=== PATIENT | female | born 1985 | race Caucasian/White ===

== ENCOUNTER 2023-06-14 07:13 | Emergency (ER) | payer OTHER, SELFPAY ==
[2023-06-14] VITALS (13 sets, daily range): BP systolic 110–148; BP diastolic 74–103; PULSE 76–97; RESP 13–26; TEMP 36.6; O2SAT 95–97; BMI 46.0
--- NOTE | 2023-06-14 07:31 | ECG_ITS ---
The [facility] Test Date: 2023-06-14 Pat Name: RIGO LIN Department: Room: - Gender: Female Independent Driver: : 1985 Requested By: WON BENITEZ Order Number: [id number] Reading MD: DANIE ZAMBRANO Measurements Intervals [place] Rate: 89 P: 61 TN: 126 QRS: 79 QRSD: 86 T: 52 QT: 344 QTc: 391 Interpretive Statements 1100 Sinus rhythm 9110 normal ECG No previous ECG available for comparison Electronically Signed On 06-15-2023 11:01:19 EST by DANIE ZAMBRANO
--- NOTE | 2023-06-14 07:31 | XR_ITS ---
The [address] [address] Patient Name: RIGO LIN MRN: [id number] date: 1985 Sex: F Assigned Patient Location: ER Current Patient Location: ER Accession/Order Number: [id number] Exam Date: 06/14/2023 07:47 Report Date: 06/14/2023 08:01 At the request of: MARIA R COLIN Procedure: XR chest 1V EXAMINATION: XR chest 1V HISTORY: chest pain ; midsternal chest pain, tachycardia COMPARISON: No relevant comparison available. FINDINGS: LUNGS: No significant pulmonary parenchymal abnormalities. VASCULATURE: No increased pulmonary vasculature. PLEURA: No pneumothorax, effusion, or pleural thickening. CARDIAC: No cardiomegaly or cardiac silhouette abnormality. MEDIASTINUM: No visible mass or adenopathy. BONES: No fracture or visible bone lesion. OTHER: Negative. XR/XR chest 1V IMPRESSION: 1. No acute cardiopulmonary process. Electronically authenticated by: VASILIY NOEL Date: 06/14/2023 08:01
--- NOTE | 2023-06-14 07:36 | ED_ITS ---
HPI - Chest Pain General Chief Complaint: Chest Pain Stated Complaint: CHEST PAIN Time Seen by Provider: 06/14/23 07:23 Source: patient Mode of arrival: walk-in Limitations: no limitations History of Present Illness HPI narrative: Started about 3 weeks ago - mid sternal chest pain. Has been intermittent but over the last week has been more frequent. Also complains of some tingling down both arms. She said that her fitbit showed HR in the 130s. No prior history of palpitations or SVT. She recently saw her PCP and was told that she has pre-diabetes . She takes Wellbutrin but no other meds. No personal cardiac history. No family history of AMI age 40 or younger. No recent change in activity or injury to account for the pain. Related Data Allergies Allergy/AdvReac Type Severity Reaction Status Date / Time No Known Drug Allergies Allergy Verified 06/14/23 07:19 Exam Narrative Exam Narrative: Nurses notes and vital signs reviewed and patient is not hypoxic. afebrile General: Well-appearing and in no apparent distress. Skin: Warm, dry, no pallor noted. Head: Normocephalic, atraumatic. Neck: Supple, non-tender. Eye: Pupils are equal, round and EOMI. No scleral icterus. Ears, Nose, Mouth, and Throat: TM are clear, no posterior oropharynx erythema or nasal mucosal hypertrophy, uvula is mid-line Oral mucosa is moist Cardiovascular: Regular Rate and Rhythm without murmur, gallop or rub. Respiratory: No accessory muscle use or respiratory distress. Lungs are clear to auscultation, no wheezing, rales or rhonchi Chest Wall: no tenderness Musculoskeletal: normal ROM, no calf or popliteal tenderness, no lower extremity edema/swelling GI: Abdomen is soft, non-distended. Normal bowel sounds. No tenderness to palpation. No rebound, guarding, or rigidity noted. Neurological: A&O x4. No cranial nerve dysfunction observed. No truncal ataxia. Moves all extremities. Sensation intact. Psychiatric: Cooperative and interactive. Normal mood and affect. Constitutional Vital Signs, click to edit/add: Last Vital Signs Temp 98 F 06/14/23 07:19 Pulse 77 06/14/23 08:40 Resp 19 06/14/23 08:40 BP 130/74 06/14/23 08:03 Pulse Ox 96 06/14/23 08:40 O2 Del Method Room Air 06/14/23 07:19 Course Vital Signs Vital signs: Vital Signs Temperature 98 F 06/14/23 07:19 Pulse Rate 90 06/14/23 07:19 Respiratory Rate 18 06/14/23 07:19 Blood Pressure 148/103 H 06/14/23 07:19 Pulse Oximetry 96 06/14/23 07:19 Oxygen Delivery Method Room Air 06/14/23 07:19 Temperature 98 F 06/14/23 07:19 Pulse Rate 77 06/14/23 08:40 Respiratory Rate 19 06/14/23 08:40 Blood Pressure 130/74 06/14/23 08:03 Pulse Oximetry 96 06/14/23 08:40 Oxygen Delivery Method Room Air 06/14/23 07:19 MDM - Chest Pain MDM Narrative Medical decision making narrative: Patient was placed on health information administrator and EKG obtained. Blood drawn and sent for evaluation. CXR obtained. WBC 20 - patient takinf prednisone. Remainder of testing negative including ekg, troponin, CXR. Patient informed of results. We discussed what we ruled out. Discussed need to see Dr Ball for follow up and potential additional workup, possible cardiology referral if fast HR returns. Lab Data Attestation: I reviewed the patient's lab results. Labs: Lab Results 06/14/23 Range/Units 07:30 WBC 20.0 H (4.0-11.0) 10^3/uL RBC 4.65 (4.20-5.40) 10^6/uL Hgb 14.5 (12.0-16.0) g/dL Hct 44.0 (36.0-48.0) % MCV 94.6 (81.0-99.0) fL MCH 31.2 (26.7-34.0) pg MCHC 33.0 (29.9-35.2) g/dL RDW 13.9 (11.0-15.0) % Plt Count 227 (150-450) 10^3/uL MPV 11.1 (9.5-13.5) fL Seg Neuts % (Manual) 60.0 Lymphocytes % (Manual) 31.0 (20.5-60.0) % Monocytes % (Manual) 8.0 (1.7-12.0) % Eosinophils % (Manual) 1.0 (0.9-7.0) % Basophils % (Manual) 0.0 L (0.2-2.0) % Neutrophils # (Manual) 12.00 H (1.4-6.5) 10^3/uL Lymphocytes # (Manual) 6.20 H (1.20-3.80) 10^3/uL Monocytes # (Manual) 1.60 H (0.30-0.80) 10^3/uL Eosinophils # (Manual) 0.20 (0.00-0.70) 10^3/uL Basophils # (Manual) 0.00 (0.00-0.10) 10^3/uL Sodium 138 (136-145) mmol/L Potassium 4.3 (3.5-5.1) mmol/L Chloride 103 (98-107) mmol/L Carbon Dioxide 22.6 (21.0-32.0) mmol/L Anion Gap 16.7 BUN 16.0 (7.0-18.0) mg/dL Creatinine 0.84 (0.55-1.02) mg/dL Est GFR ( Amer) >60 (>=60) Est GFR (Non-Af Amer) >60 (>=60) BUN/Creatinine Ratio 19.0 Glucose 96 (74-106) mg/dL Calcium 8.4 L (8.5-10.1) mg/dL Troponin I High Sens <4.0 L (4.0-51.3) pg/mL NT-Pro-B Natriuret Pep 41.0 (<=450.0) pg/mL Imaging Data Chest x-ray: Radiologist's impression: ITS Impressions Chest X-Ray 06/14/23 07:31 IMPRESSION: 1. No acute cardiopulmonary process. Electronically authenticated by: VASILIY NOEL Date: 06/14/2023 08:01 ECG Data Attestation: I personally reviewed and interpreted this ECG as follows: Interpretation: EKG interpretation: Emergency Department physician interpretation. Normal sinus rhythm at 89bpm. Normal axis, normal intervals and no ST segment elevation or depression. Normal EKG Discharge Plan Discharge Stand Alone Forms: Portal Instructions Chief Complaint: Chest Pain Clinical Impression: Chest pain Patient Disposition: Home, Self-Care Time of Disposition Decision: 08:51 Instructions: Chest Pain (ED) Referrals: Yonis Ball MD [Primary Care Provider] - 1 week Discharge Date/Time: 06/14/23 09:03
[2023-06-14 07:44] LABS: Hemoglobin 14.5 g/dL (12.0-16.0); Mean Corpuscular Hemoglobin 31.2 pg (26.7-34.0); Mean Corpuscular Volume 94.6 fL (81.0-99.0); Mean Platelet Volume 11.1 fL (9.5-13.5); Platelet Count 227 10^3/uL (150-450); Red Blood Count 4.65 10^6/uL (4.20-5.40); Red Cell Distribution Width 13.9 % (11.0-15.0)
[2023-06-14 08:08] LABS: Anion Gap 16.7; Calcium 8.4 mg/dL (8.5-10.1); Carbon Dioxide 22.6 mmol/L (21.0-32.0); Chloride 103 mmol/L (98-107); Estimated GFR (African America >60 (>=60); Estimated GFR (Non-African Ame >60 (>=60); Glucose 96 mg/dL (74-106); Potassium 4.3 mmol/L (3.5-5.1); Sodium 138 mmol/L (136-145); Troponin I High Sensitivity <4.0 pg/mL (4.0-51.3)
== END 2023-06-14 09:03 | disposition home or self-care (01) ==
PROVIDERS: Emergency Provider Emergency Medicine; PCP Family Medicine
DX: R07.9 Chest pain, unspecified (principal); Z79.899 Other long term (current) drug therapy
CPT/HCPCS: 36415; 71045; 80048; 83880; 84484; 85007; 85027; 93005; 99285

== ENCOUNTER 2024-12-09 07:11 | Outpatient (OUT) | payer OTHER, SELFPAY ==
--- OUTSIDE RECORDS SUMMARY | 2008-11-08 08:45 | XMS_ITS | Continuity of Care Document ---
Author Organization [facility] Address [address] [place] [address] Phone Care Team Providers Care Career And Technology Education Teacher Name Role Phone Osmin Green Unavailable Unavailable Procedures Procedure Date OFFICE/OUTPATIENT VISIT, [facility] OFFICE/OUTPATIENT VISIT, [facility] SPECIMEN HANDLING ODH ROCEPHINE 250 MG (PER DOSE) 009 ZITHROMAX 1 GM (10PK/BX)EACH RPR, RFX On RPR CHLANYDIA (O/R) TRACHOMATIS CULTURE GONORRHEAL (O/R) HIV-1 URINE TEST Advance Directives Directive Yes / No Effective Date File Name No Information Encounters Encounter Description Practice Location Reason(s) For Visit Diagnoses Date Provider Providers Copied on Encounter OFFICE/OUTPATI ENT VISIT, [facility], [address], [place], [id number], [place] tel:[phone] [facility] No Information Norma Solorio. [address], [place], [id number], [place]. tel:[phone] OFFICE/OUTPATI ENT VISIT, [facility], [address], [place], [id number], [place] tel:[phone] [facility] No Information Norma Solorio. [address], [place], [id number], [place]. tel:[phone] Family History Family Member Type Diagnosis Age At Onset No Information Payers Payer name Insurance type Covered republican ID Authoriza tihua(s) No Information Social History Type Description Quantity Date Captured Comments Sex Female Smoking Status No Information Chief Complaint And Reason For Visit No Information Reason For Referral Reason For Referral No Information History Of Present Illness Encounter Date Complaint History Of Prese nt Illness No Information Functional Status Date Functional Assessmen t No Information Instructions Date Instruction Additional Infor mation No Information Assessments Type Assessment Date No Information Patient Care Teams Name Effective Dates (start - stop) Status Members No Information
--- OUTSIDE RECORDS SUMMARY | 2024-07-15 09:30 | XMS_ITS | Continuity of Care Document ---
Author Organization [facility] Address [address] [place] [address] [place] [address] Phone Care Team Providers Care Footwear Stitcher Name Role Phone Monae Brito CNP Unavailable Unavailable Procedures Procedure Date OFFICE/OUTPATIENT VISIT, [facility] POSTOP FOLLOW-UP VISIT POSTOP FOLLOW-UP VISIT POSTOP FOLLOW-UP VISIT LAP SLEEVE GASTRECTOMY Sleeve Gastrectomy OFFICE/OUTPATIENT VISIT, EST PSYCL/NRPSYC TST PHY/QHP [facility] PSYCL/NRPSYC TST PHY/QHP PSYTX PT&/FAMILY 60 MINUTES OFFICE/OUTPATIENT VISIT, [facility] Advance Directives Directive Yes / No Effective Date File Name No Information Encounters Encounter Description Practice Location Reason(s) For Visit Diagnoses Date Provider Providers Copied on Encounter OFFICE/OUTPATI ENT VISIT, EST [facility], [address] [place] [address], [id number], [place] tel:[phone] [facility] No Information Daryl Licona. [address] [place] [address], [id number], [place]. tel:[phone] Referring Provider: Monae Brito, [address] [place] [address], [place], [address]. tel:[phone] [facility], [address] [place] [address], [id number], [place] tel:[phone] [facility] No Information Daryl Licona. [address], [place], [place], [id number], [place]. tel:[phone] Referring Provider: Monae Brito, [address], [place], [address]. tel:[phone], [address] [place] [address] [address], [place], [place], [id number], [place] tel:[phone] [facility] No Information Daryl Licona. [address], [place], [place], [id number], [place]. tel:[phone] Referring Provider: Monae Brito, [address], [place], [address]. tel:[phone], [address] [place] [address] [address], [place], [place], [id number], [place] tel:[phone] [facility] No Information Daryl Licona. [address], [place], [place], [id number], [place]. tel:[phone] Referring Provider: Monae Brito, [address], [place], [address]. tel:[phone], [address] [place] [address] [address], [place], [place], [id number], [place] tel:[phone] [facility] IP No Information Carolina Arreola. [address], [place], [place], [id number], [place]. tel:[phone] Referring Provider: Maxwell Mcknight, [address] [place] [address] [address], [facility] [place], [address]. tel:[phone], [address] [place] [address] [address], [place], [place], [id number], [place] tel:[phone] [facility] No Information Daryl Monae. [address], [place], [place], [id number], [place]. tel:[phone] Referring Provider: Monaearsenio Brito, [address] [place] [address] [address], [place], [address]. tel:[phone] OFFICE/OUTPATI ENT VISIT, [facility], [address] [place] [address] [address], [place], [place], [id number], [place] tel:[phone] [facility] No Information Carolina Arreola. [address] [place] [address] [address], [place], [place], [id number], [place]. tel:[phone] Referring Provider: Maxwell Mcknight, [address] [place] [address] [address], [place], [address]. tel:[phone] PSYTX PT&/FAMILY [facility], [address] [place] [address] [address], [place], [place], [id number], [place] tel:[phone] [facility] No Information Wong Lawrence. [address] [place] [address] [address], [place], [place], [id number], [place]. tel:[phone] Referring Provider: Melinda Back, [address] [place] [address] [address], [place], [address]. tel:[phone] OFFICE/OUTPATI ENT VISIT, [facility], [address] [place] [address] [address], [place], [place], [id number], [place] tel:[phone] [facility] No Information Carolina Arreola. [address] [place] [address] [address], [place], [place], [id number], [place]. tel:[phone] Referring Provider: Maxwell Mcknight, [address] [place] [address] [address], [place], [address]. tel:[phone] Family History Family Member Type Diagnosis Age At Onset No Information Payers Payer name Insurance type Covered libertarian ID Authoriza tion(s) [employer] [place] Medicaid CI [id number] Social History Type Description Quantity Date Captured Comments Sex Female Smoking Status No Information Chief Complaint And Reason For Visit No Information Reason For Referral Reason For Referral No Information Plan Of Treatment Date Type Action Status Appointment Lillie Hayes BOOKED History Of Present Illness Encounter Date Complaint History Of Prese nt Illness No Information Functional Status Date Functional Assessmen t No Information Instructions Date Instruction Additional Infor mation No Information Assessments Type Assessment Date No Information Patient Care Teams Name Effective Dates (start - stop) Status Members No Information
--- OUTSIDE RECORDS SUMMARY | 2024-11-17 06:35 | XMS_ITS ---
Author Organization [facility] Address [address] [place] [address] Care Team Providers Care Well Service Floorperson Name Role Phone Dr. Jens Stephenson Primary Care Provider [phone] REASON FOR VISIT EXT Encounters Encounter Location Date Provider Diagnosis [facility] [address] [address] 2024 Jens Stephenson Plan Of Treatment Next Appt Details Provider Name:Jens Stephenson, 0 12/09/2024 11:15:00 AM, [address] [place], [address], Provider Name:Jens Stephenson, 0 12/28/2024 10:10:00 AM, [address] [place], [address], Provider Name:Philly Mercer , 03/02/2025 10:15:00 AM, [address], [place], [address], Progress Notes * RIGO LIN RDOB:[birth year] (39 yo F)Acc No.[id number]:11/17/2024 Patient: Analia ADATASH RIGO Lyon Provider: Shahrzad Stephenson DDS :1985 A ge:39 Y S ex:Female Date:11/17/2024 [address] [place], [place] Subjective: * Chief Complaints: * 1 . EXT. * Medical History: Objective: * Vitals: Assessment: Plan: * Treatment: * Images: * Electronic signature of Dr. Jens Stephenson , DMD on 12/09/2024 at 07:14 AM EDT Sign off status: Pending * Provider: Shahrzad Stephenson DDS Date: 0 11/17/2024 Generated for Cong kamara/Kit/eTana on: 0 12/09/2024 07:14 AM EDT
--- OUTSIDE RECORDS SUMMARY | 2024-12-03 05:30 | XMS_ITS ---
Author Organization [facility] [place] Address [address] [place] [address] Care Team Providers Care Cis Coordinator Name Role Phone Itz Oneill Primary Care Provider Allergies No Known Allergies REASON FOR VISIT [employer]- ESTABLISH- transfer from Dr Ball, been out of meds for awhile- concentration is off, bariatric surgery- gastric sleeve- down 134 lbs Medications Medication SIG (Take, Route, Fr equency, Duration) Notes Start Date End Date Status ALPRAZolam 0.25 MG 1 tablet Orally bid for 7 days 12/03/2024 Active LaMICtal 25 MG 1 tablet Orally for 30 day(s) 12/03 Active Wellbutrin XL 150 MG 1 tablet in the mor rosy Orally Once a day for 30 day(s) 12/03/2024 Active Social History Tobacco Use: Social History Observation Description Date Details (start date - stop date) Former Smoker 11/06/1996 - 10/07/2023 Tobacco Control (Standard) Question Answer Notes Tobacco use: Former smoker When did you start smoking? 11/06/1996 When did you stop smoking? 10/07/2023 How long has it been since you last smoked? 1-5 years AUDIT-C (Standard) Question Answer Notes Did you have a drink containing alcohol in the p ast year? No Points 0 Interpretation Negative Problems Problem Type SNOMED Code ICD Code Onset Dates Problem Status W/U Status Risk Notes Problem Depression (359558931) Depression (F32.9) Active confirmed Problem Anxiety (30345738) Anxiety (F41.9) Active confirmed Vital Signs Blood pressure systolic 118 mm Hg 12/04/19 25 Blood pressure diastolic 74 mm Hg 025 Height 71 in 12/03/2024 Weight 193.8 lbs 12/03/2024 BMI 27.03 kg/m2 12/03/2024 Encounters Encounter Location Date Provider Diagnosis [facility] [address] [place] [address] 12/03/2024 Itz Oneill Well adult Z00.00 an d Anxiety F41.9 Assessments Encounter Date Diagnosis (ICD Code) Assessment Notes Treatment Notes Treatment Clinical Notes Section Notes 12/03/2024 Well adult (ICD-10 - Z00.00) 12/03/2024 Anxiety (ICD-10 - F41.9) Plan Of Treatment Medication Medication Name Sig Start Date Stop Date Notes ALPRAZolam 0.25 MG 1 tablet Orally bid for 7 days 12/04/19 25 LaMICtal 25 MG 1 tablet Orally for 30 day(s) 12/03/2024 Wellbutrin XL 150 MG 1 tablet in the mor rosy Orally Once a day for 30 day(s) 12/03/2024 Pending Test Test Name Order Date HEMOGLOBIN A1C (GLYCO) 12/03/2024 IRON, TOTAL 12/03/2024 LIPID PANEL (CHOL/TRIG/HDL/LDL) 12/04/19 25 VITAMIN D, 25 LEVEL (TOTAL) 12/03/2024 FSH+LH+Prog+E2 12/03/2024 VIT B12 AND FOLATE 12/03/2024 THYROID PANEL (T4/TSH/FREE T3) CMP (COMP MET BARBOUR) w/eGFR CKD-EPI 2024 CBC WITH DIFF 12/03/2024 Progress Notes * King DONALDOB: [birth year] (39 yo F)Acc No.[id number]:12/03/2024 UNLOCKED PROGRESS NOTE New Patient Patient: Lillie CARPENTER Provider: Naa Oneill (TTC)MD :1985 A ge:39 Y S ex:Female Date:12/03/2024 Address:[address] [place], [place] [id number] Check In:09:22 AM ESTCheck O ut:10:01 AM EST Subjective: * Chief Complaints: * 1 . [employer]- ESTABLISH- transfer from Dr Ball. 2. Been out of meds for awhile- concentration is off. 3. January had bariatric surgery- gastric sleeve- down 134 lbs. * HPI: G eneral: Hd gastric sleeve - -0 still losing out of meds - was on wellbutrin lamictal and prn xanax. D epression Screening: PHQ-2 (2015 Edition) L ittle interest or pleasure in doing things??Several days F eeling down, depressed, or hopeless? S everal days T otal Score 2 D epression Screening: PHQ-9 L ittle interest or pleasure in doing things?Several days F eeling down, depressed, or hopeless S everal days T rouble falling or staying asleep, or sleeping too much N early every day F eeling tired or having little energy N early every day P oor appetite or overeating N early every day F eeling bad about yourself or that you are a failure, or have let yourself or your family down S everal days T rouble concentrating on things, such as reading the newspaper or watching television N early every day M oving or speaking so slowly that other people could have noticed; or the opposite, being so fidgety or restless that you have been moving around a lot more than usual N early every day T houghts that you would be better off or of hurting yourself in some way N ot at all T otal Score 1 8 I nterpretation M oderately Severe Depression * ROS: E ENT: hearing changes d enies. v isual changes d enies.?non-healing mouth sores d enies. s wollen glands or neck lumps d enies. h oarseness d enies. s ore throat d enies. d ifficulty swallowing d enies. n ose bleeds d enies. n johan congestion d enies. e ar ache d enies. e ar discharge?denies. r inging in ears d enies. l ight sensitivity d enies. e ye pain d enies. b lurring d enies. e ye irritation d enies. d ouble vision d enies.?vision loss d enies. G eneral/Constitutional: Sweats: D enies. F atigue d enies. S leep problems d enies. A norexia d enies. M alaise d enies. W eight loss d enies.?Fatigue or Weakness d enies. F ever or Chills d enies. C ardiovascular: Shortness of Breath w/lying flat d enies. L ightheadedness/dizziness d enies. C hest tightness/ heavy pressure d enies. S welling of legs, ankles, or feet d enies. W aking up with shortness of breath d enies. C hest pain denies. P alpitations d enies. W eight gain d enies. R espiratory: Chronic or frequent cough d enies. C oughing up blood?denies. D ifficulty breathing d enies. P roductive cough d enies. S noring?denies. S hortness of breath that awakens from sleep (PND) d enies. C hest pain d enies. S putum production d enies. W heezing d enies. M usculoskeletal: Joint pain d enies. J oint Fluid d enies. B ack pain d enies. K nee pain d enies. N chelsea pain d enies. J oint Stiffness d enies. M uscle cramps d enies. W eakness of muscles d enies. A rthritis d enies. M uscle aches d enies. P ain in shoulder(s) d enies. S wollen joints d enies. * Medical History: A nxiety, Depression. * Surgical History: B ariatric Surgery- Dr Figueroa 01/2024. * Hospitalization/Major Diagno stic Procedure: B ariatric surgery 01/2024. * Family History: F ather: alive, diagnosed with Unspecified essential hypertension. M other: alive. M aternal Grandmother: alive. * Social History: T obacco Use: T obacco Control (Standard) T obacco use: F ormer smoker W hen did you start smoking? 0 11/06/1996 W hen did you stop smoking? 0 10/07/2023 H ow long has it been since you last smoked??1-5 years D rug/Alcohol: A MANUEL-C (Standard) D id you have a drink containing alcohol in the past year? N o P oints 0 I nterpretation N egative * Medications: N one * Allergies: N .K.D.A. Objective: * Vitals: W t:193.8lbs, Ht: 71 in, BP:118/74mm Hg, BMI:27.03Index, Ht-cm: 180.34 cm, Wt-k.91 kg. * Examination: P hysical Exam: GENERAL: w ell developed, well nourished, in no acute distress. HEAD: n ormocephalic/atraumatic. EYES: p upils equal, round and reactive to light, conjunctivae and sclerae normal. EARS: n o deformity or lesion of external ear, canals and TM appear normal bilaterally, TM's intact, not inflamed with normal light reflex, hearing grossly normal to conversational speech. NOSE: n o deformity, discharge, inflammation, or lesions.? MOUTH: m ucous membranes moist, normal oropharynx and posterior pharynx without lesions or exudates, tongue normal, dentition normal. NECK: n chelsea supple, no masses or palpable cervical nodes, trachea midline, thyroid without nodules, masses, tenderness, or enlargement. CHEST: n o chest wall deformity, no chest wall tenderness.? LUNGS: n ormal respiratory effort and clear to auscultation, no wheezes, rales, or rhonchi, good air exchange. CARDIO: r egular rate and rhythm, normal S1 and S2, nor murmur, rub, or gallop. PULSES: n ormal capillary refill. ABDOMEN: s oft, non-distended, non-tender, no masses. MUSCULOSKELETAL: n o deformity or scoliosis noted, normal range of motion, joints normal, no erythema, edema, effusion, or ecchymosis. EXTREMITY: n o clubbing, cyanosis, edema, or deformity with normal ROM in both upper and lower bilateral extremities. NEUROLOGIC: g rossly normal. SKIN: n o rashes, ulcerations, or suspicious lesions. LYMPH NODES: n o cervical adenopathy, nodes normal. MENTAL STATUS: a lert and oriented x3, normal mood and affect. Assessment: * Assessment: 1. W ell adult - Z00.00 (Primary) 2 . A nxiety - F41.9 Plan: * Treatment: 2. A nxiety Start Wellbutrin XL Tablet Extended Release 24 Hour, 150 MG, 1 tablet in the morning, Orally, Once a day, 30 day(s), 30; S tart LaMICtal Tablet, 25 MG, 1 tablet, Orally, 30 day(s), 15; S tart ALPRAZolam Tablet, 0.25 MG, 1 tablet, Orally, bid, 7 days, 14 Tablet, Refills 0. * Procedure Codes: 3 078F DIAST BP < 80 MM HG, 3074F SYST BP LT 130 MM HG * * Electronic signature of Itz Oneill MD, [id number] on 12/09/2024 at 07:14 AM EDT Sign off status: Pending Visit Status: Ana COTA (Check Out) * Provider: Naa Oneill ([facility])MD Date: 0 12/03/2024 Generated for Cong kamara/Kit/eTransmitting on: 0 12/09/2024 07:14 AM EDT History and Physical Notes * HPI (History of Present Illness) Category Sub-Category Detail Notes Category Not es Depression Screening PHQ-9 Little inte rest or pleasure in doing things: Several days Feeling down, depressed, or hopeless: Se veral days Trouble falling or staying asleep, or sl eeping too much: Nearly every day Feeling tired or having little energy: N early every day Poor appetite or overeating: Nearly ever y day Feeling bad about yourself o r that you are a failure, or have let yourself or your family down: Several days Trouble concentrating on thi ngs, such as reading the newspaper or watching television: Nearly every day Moving or speaking so slowly that other people could have noticed; or the opposite, being so fidgety or restless that you have been moving around a lot more than usual: Nearly every day Thoughts that you would be b alan off or of hurting yourself in some way: Not at all Total Score: 18 Interpretation: Moderately Severe Depres jesus General Hd gastric sleeve - -0 still losing out of meds - was on wellbutrin lamictal and prn xanax Depression Screening PHQ-2 (2015 Edition) Little interest or pleasure in doing things?: Several days Feeling down, depressed, or hopeless?: S everal days Total Score: 2 Examination Category Sub-Category Detail Notes Category Not es Physical Exam GENERAL: well developed, well nourished, in no acute distress HEAD: normocephalic/atraum atic EYES: pupils equal, round and reactive to light, conjunctivae and sclerae normal EARS: no deformity or lesi on of external ear, canals and TM appear normal bilaterally, TM's intact, not inflamed with normal light reflex, hearing grossly normal to conversational speech NOSE: no deformity, discha rge, inflammation, or lesions MOUTH: mucous membranes melody st, normal oropharynx and posterior pharynx without lesions or exudates, tongue normal, dentition normal NECK: neck supple, no mass es or palpable cervical nodes, trachea midline, thyroid without nodules, masses, tenderness, or enlargement CHEST: no chest wall deform ity, no chest wall tenderness LUNGS: normal respiratory e ffort and clear to auscultation, no wheezes, rales, or rhonchi, good air exchange CARDIO: regular rate and rhy thm, normal S1 and S2, nor murmur, rub, or gallop PULSES: normal capillary ref ill ABDOMEN: soft, non-distended, non-tender, no masses RECTAL: MUSCULOSKELETAL: no deformity or scol iosis noted, normal range of motion, joints normal, no erythema, edema, effusion, or ecchymosis EXTREMITY: no clubbing, cyanosi s, edema, or deformity with normal ROM in both upper and lower bilateral extremities NEUROLOGIC: grossly normal SKIN: no rashes, ulceratio ns, or suspicious lesions LYMPH NODES: no cervical adenopat hy, nodes normal MENTAL STATUS: alert and oriented x 3, normal mood and affect
--- OUTSIDE RECORDS SUMMARY | 2024-12-09 07:14 | XMS_ITS | Encounter Summary ---
Author Organization [facility] Address [address] [facility] [place] [address] Care Team Providers Care Imaging Aide Name Role Phone Yonis Ball MD Primary Care Provider [phone] Yonis Ball MD Unavailable Yonis Ball MD Unavailable Encounter Details Date Type Department Care Team (Late st Contact Info) Description 06/19/2023 Orders Only [facility] [address] [facility] [place] [address] Allen Crowell MD [address] [facility] Social History Tobacco Use Types Packs/Day Years Used Date Smoking Tobacco: Every Day Cigarettes 1 20.7 Started: 2004 Passive Smoke Exposure: Past Alcohol Use Standard Drinks/Week Comments Defer 0 (1 standard drink = 0.6 oz pur e alcohol) Comments Unknown Sex and Gender Information Value Date Recorded Sex Assigned at Not on file Legal Sex Female 7:20 PM EDT Gender Identity Not on file Sexual Orientation Not on file documented as of this encounter Plan of Treatment Not on file documented as of this encounter Procedures Procedure Name Priority Date/Time Associated Diagnosis Comments ECG 12-LEAD Routine 06/19/2023 9:06 AM EDT XR CHEST 1 VIEW Routine 06/19/2023 8:58 AM EDT documented in this encounter Results * ECG 12 lead (06/19/2023 9:06 AM EDT) us Yonis Ball MD ECG ORDERABLES Final Result * XR chest 1 view (06/19/2023 8:58 AM EDT) Anatomical Region Laterality Modality Chest Radiographic Geovanna ging us Allen Crowell MD IMG XR PROCEDURES Final Result documented in this encounter Visit Diagnoses Not on filedocumented in this encounter Care Teams Imaging Aide Relationship Specialty Start Date End Date Yonis Ball MD PCP - General Family Medicine 05/28/23 Yonis Ball MD [address] [place] [id number] PCP - [facility] 01/07/24 04/07/24 Yonis Ball MD [address] [place] [phone] PCP - [facility] [employer] 04/08/24 documented as of this encounter
--- OUTSIDE RECORDS SUMMARY | 2024-12-09 07:15 | XMS_ITS | Clinical Summary ---
Author Organization [facility] Address [address] [place] [address] Care Team Providers Care Nut Process Helper Name Role Phone Yonis Ball MD Primary Care Provider [phone] Yonis Ball MD Unavailable Allergies No known active allergies Medications Levonorgestrel (Mirena, 52 MG,) 20 MCG/DAY intrauterine device 1 Device by Intrauterine route continuously Active buPROPion XL (Wellbutrin XL) 300 MG 24 hr tabletIndication s:Major depressive disorder, recurrent episode, mild Take 1 tablet (300 mg) by mouth Daily Do not crush, chew, or split. 30 tablet 5 4 Active lamoTRIgine (LaMICtal) 25 MG tabletIndication s:Moderate recurrent major depression (HCC) 1 PO QHS x 2 weeks then 2 PO QHS 60 tablet 3 4 Active cholecalciferol (Vitamin D-3) 50 MCG (2000 UT) tabletIndication s:Vitamin D deficiency Take 2,000 Units by mouth Daily 90 tablet 3 4 Active phentermine (Adipex-P) 37.5 MG tabletIndication s:Morbid obesity due to excess calories ([facility]) Take 1 tablet (37.5 mg) by mouth in the morning. Take before meals. 30 tablet 4 Active nicotine polacrilex (Nicotine Mini) 4 MG lozengeIndicatio ns:Tobacco use disorder, continuous Dissolve 1 lozenge (4 mg) in the mouth every 2 (two) hours if needed for smoking cessation 100 lozenge 2 4 Active Active Problems Problem Noted Date Diagnosed Date Tobacco use disorder, continuous 11/01/2023 Assessment & Plan (11/01/2023 11:45 AM EDT): Wants to quit smoking and start nicotine replacement. Prediabetes 06/12/2023 Calculus of bile duct withou t cholecystitis and without obstruction 06/11/2023 Generalized anxiety disorder 06/11/2023 Assessment & Plan (11/01/2023 11:44 AM EDT): Mood much improved and continue medication. Assessment & Plan (09/13/2023 12:51 PM EDT): Continued symptoms and add lamictal. Continue wellbutrin at current dose. Warned will take 2-3 weeks to notice improvement in mood. Assessment & Plan (06/11/2023 10:42 AM EST): Severe symptoms and resume wellbutrin. Warned will take 2-3 weeks to notice improvement in mood. Non-seasonal allergic rhinitis 06/11/2023 Major depressive disorder, recurrent, mild 06/10 Assessment & Plan (11/01/2023 11:44 AM EDT): Mood much improved and continue medication. Assessment & Plan (09/13/2023 12:51 PM EDT): Continued symptoms and add lamictal. Continue wellbutrin at current dose. Warned will take 2-3 weeks to notice improvement in mood. Assessment & Plan (06/11/2023 10:42 AM EST): Severe symptoms and resume wellbutrin. Warned will take 2-3 weeks to notice improvement in mood. Overactive bladder 06/11/2023 Vitamin D deficiency 06/11/2023 Morbid obesity due to excess calories 06/11/2023 Assessment & Plan (11/01/2023 11:45 AM EDT): Patient doing well with adipex but gained weight this month. Tolerating well with only mild dry mouth. Continue with dietary changes and less calories. Need to limit snacking and smaller portions. Continue healthier choices. Need regular aerobic exercise 30 minutes at a time 5-6 days a week. Refill for another month. OARRS reviewed. Continue meds as prescribed. If develop new or worsening symptoms contact office. Assessment & Plan (09/13/2023 12:51 PM EDT): Patient doing well with adipex and lost 10 pounds in first month. Tolerating well with only mild dry mouth. Continue with dietary changes and less calories. Need to limit snacking and smaller portions. Continue healthier choices. Need regular aerobic exercise 30 minutes at a time 5-6 days a week. Refill for second month. OARRS reviewed. Continue meds as prescribed. If develop new or worsening symptoms contact office. Assessment & Plan (06/11/2023 10:42 AM EST): Patient overweight and difficult time losing weight. Discussed proper diet and regular aerobic exercise. Recommend Weight Watchers and need to limit calories and smaller portions. Need to increase activity and regular aerobic exercise several days a week for 30 minutes at a time. Interested in adipex and warned of potential cardiac side effects. Script written for first month and will need to recheck weight in 1 month. OARRS reviewed. Continue medications as prescribed. Refer to [facility] to discuss surgical options. Annual physical exam 06/11/2023 Family History Medical History Relation Name Comments Atrial fibrillation Father Thyroid disease Mother Relation Name Status Comments Father Alive Mother Alive Social History Tobacco Use Types Packs/Day Years Used Date Smoking Tobacco: Every Day Cigarettes 1 20.7 Started: 2004 Passive Smoke Exposure: Past Tobacco Cessation:Ready to Q uit: Not Asked; Counseling Given: Yes Alcohol Use Standard Drinks/Week Comments Defer 0 (1 standard drink = 0.6 oz pur e alcohol) Comments Unknown Sex and Gender Information Value Date Recorded Sex Assigned at Not on file Legal Sex Female 7:20 PM EDT Gender Identity Not on file Sexual Orientation Not on file Last Filed Vital Signs Vital Sign Reading Time Taken Comments Blood Pressure 142/80 11/01/2023 11:19 AM EDT Pulse 116 11/01/2023 11:19 AM EDT Temperature 36.2 C (97.1 F) 11/01/2023 11:19 AM EDT Respiratory Rate 22 11/01/2023 11:19 AM EDT Oxygen Saturation 92% 11/01/2023 11:19 AM EDT Inhaled Oxygen Concentration - - Weight 153 kg (337 lb) 11/01/2023 11:19 AM EDT Height 180.3 cm (5' 11 ) 11/01/2023 11:19 AM EDT Body Mass Index 47 11/01/2023 11:19 AM EDT Plan of Treatment Health Maintenance Due Date Last Done Comments Pap Smear 07/07/2007 Cervical Cancer Screening 2016 HPV/Cotest 2016 Influenza Vaccine (#1) 2024 Insurance [facility] MEDICAID MEDICAID [place] Care Teams Nut Process Helper Relationship Specialty Start Date End Date Yonis Ball MD PCP - General Family Medicine 05/28/23 Yonis Ball MD [address] [place] [address] PCP - [facility] 04/08/24
--- OUTSIDE RECORDS SUMMARY | 2024-12-09 07:15 | XMS_ITS | CCD ---
Author Organization [facility] Care Team Providers Care Complementary Health Therapists Name Role Phone MELANIE MONTELONGO Admitting Unavailable MELANIE MONTELONGO Attending Unavailable CORETTA CLEVELAND Referring Unavailable CORETTA CLEVELAND Primary Care Unavailable MELANIE MONTELNOGO Surgeon Unavailable MA Procedure Practitioner Unavailab india MA Procedure Practitioner Unavailab SINTIA Hurtado Surgeon Unavailable Lynn Mathew Unavailable DR MARIA R SWANN Attending Unavailable JESSICA, DR BERRY Neri Consulting Unavailable DR WON BENITEZ Primary Care Unavailable DR MARIA R SWANN Admitting Unavailable DR MARIA R SWANN Consulting Unavailable ANIL CLEVELAND Attending ANIL Kessler Referring Unavailable WON BENITEZ Attending Unavailable ANIL CLEVELAND Attending Unavailable ANIL CLEVELAND Attending Unavailable WON BENITEZ Attending Unavailable Allergies Allergy Classification Reported Allergen(s) Allergy Type Date of Onset Reaction(s) Facility (1 source) 30440,00; Translations: [Unknown] Propensity to adverse reactions (disorder) 9 [facility] Repository Medications Current Medications Medication Drug Class(es) Dates Sig (Normalized) Sig (Original) [id number] 200 actuat albuterol 0.09 mg/actuat metered dose inhaler (1 source) beta2-Adrenergic Agonist Start: 04-04-2021 take 2 puff(s) by inhalation every four to six hours as needed Albuterol Sulfate HFA 108 (90 Base) MCG/ACT 2 puffs as needed Inhalation every 4-6 hours for 14 days Mar, Active buPROPion (1 source) Aminoketone Wellbutrin Active diazePAM (1 source) Benzodiazepine Valium Active lamoTRIgine (1 source) Mood Stabilizer, Anti-epileptic Agent LaMICtal Active montelukast (1 source) Leukotriene Receptor Antagonist Singulair Active Vitamin D (1 source) Vitamin D Active Problems Active Problems Problem Classification Problem Date Documented Da te Episodic/Chronic Anxiety disorders (1 source) Anxiety disorder, unspecified; Translations: [ANXIETY DISORDER UNSPECIFIED] Onset: 07-31-2021 Chronic Mood disorders (1 source) Major depressive disorder, single episode, unspecified; Translations: [GRAEME DEPRESS D/O SINGLE EPIS UNS] Onset: 07-31-2021 Chronic Substance-related disorders (1 source) Nicotine dependence, cigarettes, uncomplicated; Translations: [NICOTINE DEPEND CIGARETTES UNCOMP] Onset: 07-31-2021 Chronic Past or Other Problems Problem Classification Problem Date Documented Da te Episodic/Chronic E Codes: Natural/environment (1 source) Other and unspecified overexertion or strenuous movements or postures, initial encounter; Translations: [OTH AND UNS OVREXRT/STRN MVMT/POS INT] Onset: 07-31-2021 Episodic E Codes: Unspecified (1 source) Activity, dancing; Translations: [ACTIVITY DANCING] Onset: 07-31-2021 Episodic Immunizations and screening for infectious disease (1 source) Contact with and (suspected) exposure to other viral communicable diseases Onset: 04-04-2021 Resolved: 04-04-2021 Episodic Other aftercare (1 source) Other residential (current) drug therapy; Translations: [OTH BLOOD BANK WORKER CURRENT DRUG THERAPY] Onset: 07-31-2021 Episodic Other non-traumatic joint disorders (3 sources) Effusion, right ankle; Translations: [EFFUSION RIGHT ANKLE] Onset: 07-30-2021 Episodic Sprains and strains (1 source) Sprain of unspecified ligament of right ankle, initial encounter; Translations: [SPRAIN UNS LIGAMENT RT ANKLE INIT] Onset: 07-31-2021 Episodic Results Test Name Value Interpretation Reference Range Facil ity COVID Quick Testingon 2020 Result Negative [facility] [employer] [facility] Other Quick Fluon 04-04-2021 FLUAV Ab CF (S) [Titer] Negative [employer] Other FLUBV Ab CF (S) [Titer] Negative [employer] Other Operative Reporton 9 Operative Report MR#: [id number] [facility] Pt. Name: Lillie Donald #: [id number] Discharge Date: Birthdate: 1985 OPERATIVE REPORT DATE OF SURGERY: 11/25/2018 SURGEON: Melanie Montelongo M.D. PREOPERATIVE DIAGNOSIS: Right hand inter distal granuloma. PROCEDURE PERFORMED: Right hand 3rd interdigital granuloma excision. POSTOPERATIVE DIAGNOSIS: Right hand 3rd interdigital granuloma. RESIDENT: Cari Yousif M.D., PGY 4. ANESTHESIA: Axillary block with sedation. INDICATIONS FOR THE PROCEDURE: The patient is a 33-year-old female who works as a hair clipper power, who presented to us with progressively worsening pain and a mass along the dorsal aspect of the right hand 3rd webspace. She was diagnosed with right hand 3rd interdigital foreign body granuloma from hair clipping. She tried conservative management in the form of activity modification with no relief. As she continued to have severe pain with significant functional interference, the available treatment options were discussed with her including the option of right hand the 3rd interdigital foreign body granuloma excision. The risks, benefits, and alternatives were discussed with her and she elected to proceed. History and physical was done. Informed consent was obtained. The procedure was discussed with her in detail in the preoperative holding area, the right hand was marked. Preoperative antibiotics were begun and she was taken to the operating room. DESCRIPTION OF THE PROCEDURE: The patient was placed supine on the operative table. She was given an axillary block by Anesthesia in the holding. She was given sedation. A tourniquet was applied on the right proximal arm. EPC cuffs were applied on the bilateral lower legs and the right hand and the right upper extremity were prepped and draped in a sterile standard fashion. A complete surgical time-out was performed. The right upper extremity was exsanguinated and the tourniquet was inflated to 220 mmHg pressure. A longitudinal skin incision was made over the dorsal aspect of the right hand 3rd webspace and the incision were deepened down through the subcutaneous tissues. There foreign body granuloma noted with retained hair clippings throughout the dermis and the subcutaneous tissue which were completely excised. Once the granuloma was completely excised and the hair clippings were completely removed, the wound was thoroughly irrigated. The skin incision was approximated using 4-0 nylon interrupted horizontal mattress sutures. Extremity was clear and sterile dressings were applied followed by application of a compressive Cade wrap. The tourniquet was released and the tourniquet time was 20 minutes. The patient was awakened from anesthesia and was transferred to recovery in stable condition. Sponge, needle, and instrument counts were found to be accurate. ESTIMATED BLOOD LOSS: 5 mL. COMPLICATIONS: None. DISPOSITION OF THE PATIENT: She will be weightbearing as tolerated on her right upper extremity. She will be discharged home and will be seen in followup in the office in 2 weeks. Electronically Signed by: Melanie Montelongo M.D. 12/11/2018 03:28 P Melanie Montelongo M.D. Date Dict: 11/25/2018/07:36 P/Melanie Montelongo M.D. Date Trans: 11/26/2018 05:26 A/melodie [id number] cc: Coretta Cleveland M.D. [facility] [address] [place] [address] Normal [facility] POC GLUCOSE LABon 11-25-2018 Glucose [Mass/Vol] 110 mg/dL High 70-100 [facility] Comment on above: Performed By: #### [id number] #### [facility] [address] [place] [address], [facility] POC URINE PREGNANCYon 2018 Beta HCG ( test) Ql (U) Negative Normal NEGATIVE [facility] Comment on above: Result Comment: Perf ormed in PACU Performed By: #### [id number] #### [facility] [address] [place] [address], [facility] Vital Signs Date Time Vital Sign Value Performing Clinician Facility 04-04-2021 17:00-0500 Body height 180.34 cm Lynn Mathew Other [facility] Other 04-04-2021 17:00-0500 Body mass index (BMI) [Ratio] 34.86 kg/m2 Lynn Mathew Other [facility] Other 04-04-2021 17:00-0500 Body temperature 100.1 [degF] Lynn Ginty Other [facility] Other 04-04-2021 17:00-0500 Body weight 113.4 kg Lynn Ginty Other [facility] Other 04-04-2021 17:00-0500 Respiratory rate 18 /min Lynn Ginty Other [facility] Other 04-04-2021 17:00-0500 SaO2% (BldA) [Mass fraction] 98 % Lynn Ginty Other [facility] Other Encounters Encounter Date Encounter Type Care Provider Facility Start: 09-13-2023 End: 09-13-2023 ambulatory WON BENITEZ Not Available Start: 07-09-2023 End: 07-09-2023 ambulatory ANIL CLEVELAND Not Available Start: 06-20-2023 End: 06-20-2023 ambulatory ANIL CELVELAND Not Available Start: 06-11-2023 End: 06-11-2023 ambulatory WON BENITEZ Not Available Start: 06-07-2023 End: 06-07-2023 ambulatory ANIL CLEVELAND Not Available Start: 07-30-2021 End: 07-30-[address] MARIA R COLIN . Facility: Start: 04-04-2021 End: 04-04-2021 ambulatory Lynn Ginty Other [facility] Other Start: 04-04-2021 Office outpatient vi sit 15 minutes Lynn Ginty [facility] Start: 11-25-2018 End: 11-26-2018 Patient encounter procedure MELANIE MONTELONGO Facility:[facility] Procedures Date Procedure Procedure Detail Performing Clinician Start: 11-25-2018 Anes integ extremiti es ant trunk & perineum nos SINTIA CORDERO Start: 11-25-2018 REMOVE FOREIGN BODY SAT SANTA MONTELONGO Payers Date Payer Category Payer Medicaid [id number] 1985 Unknown [id number] 2.16.8 [id number] 1985 Unknown [id number] 2.16.84 [id number] 1985 Unknown [id number] 2.16.84 [id number] 1985 Unknown [id number] 2.16.84 [id number] 1985 Unknown [id number] 2.16.84 [id number] 1985 Unknown [id number] 2.16.84 [id number] 1985 Unknown [id number] 2.16.84 [id number] 1985 Unknown [id number] 2.16.84 [id number] 1959 Unknown [id number] [id number]. [id number] Worker's Compensation [id number] Social History Date Type Detail Facility Sex Assigned At [facility] Other Evaluation note 04-04-2021 Note Date & Type Note Facility 04-04-2021 Evaluation note Encounter Date Diagnosis Assessment Notes Mar, Contact with and (suspected) exposure to other viral communicable diseases (ICD-10 - Z20.828) Advised patient that COVID antigen rapid test today in office was negative. Discussed supportive care of viral infections, including, OTC cold medications, Tylenol/Motrin as directed on packaging for fever/aches, increase fluids and rest, cool mist humidification, throat lozenges. May use rx of Albuterol Inhaler as needed. Patient to follow-up with PCP for persistent or worsening sx despite tx for COVID PCR test. Immediate eval by ER for warning s/sx as discussed, including but not limited to, SOB, difficulty breathing, chest pain, palpitations, fever >103 or fevers that are not reduced with antipyretic, significant dehydration (unable to keep fluids or food down, persistent vomiting/diarrh ea), abdominal pain, lethargy, severe headache. Patient was provided with education hand sheet. Patient verbalizes understanding and is agreeable to treatment plan Mar, Other Additional time spent conducting pre-visit phone call, screening for symptoms, instructions on social distancing, application and removal of PPE, and cleaning of examination room, equipment and supplies was preformed. Patient education given for testing methodology and results. Patient care instructions given in writting by [facility] Care At Home document [employer] Other History general Narrative - Reported Note Date & Type Note Facility History general Narrative - Reported Type Medical History chronic depression Medical History anxiety [employer] Other Summary Purpose Family History No Family History Records FoundNo Family History Records FoundNo Family History Records Found Advance Directives No Advanced Directives Records FoundNo Advanced Directives Records FoundNo Advanced Directives Records Found Additional Source Comments INFORMATION SOURCE (unrecogn ized section and content) DATE CREATED AUTHOR 12/12/2018 [facility] DATE CREATED AUTHOR AUTHOR'S ORGANIZ ATION 08/17/2022 [facility] DATE CREATED AUTHOR AUTHOR'S ORGANIZ ATION 09/14/2023 [facility] REASON FOR VISIT (unrecogniz ed section and content) #29 BLACK JEEP WRANGLER, COU GH, SOB, CONGESTION, PHONE IS FOR RECORDS PERTAINING TO PATIENTS WHO ARE OR HAVE BEEN ENROLLED IN A CHEMICAL DEPENDENCY/SUBSTANCEABUSE PROGRAM, SOME INFORMATION MAY BE OMITTED. This clinical summary was aggregated from multiple sources. Caution should be exercised in using it in the provision of clinical care. This summary normalizes information from multiple sources, and as a consequence, information in this document may materially change the coding, format and clinical context of patient data. In addition, data may be omitted in some cases. CLINICAL DECISIONS SHOULD BE BASED ON THE PRIMARY CLINICAL RECORDS. [facility]. provides no warranty or guarantee of the accuracy or completeness of information in this document.
--- OUTSIDE RECORDS SUMMARY | 2024-12-09 07:15 | XMS_ITS | Encounter Summary ---
Author Organization [facility] Address [address] [place] [address] Care Team Providers Care Surgery Scheduler Name Role Phone Yonis Ball MD Primary Care Provider Yonis Ball MD Unavailable Yonis Ball MD Unavailable Encounter Details Date Type Department Care Team (Late st Contact Info) Description 07/25/2023 Orders Only [facility] [address] [place] [address] Maxwell Figueroa MD [address] [facility] [address] [place] [address] Social History Tobacco Use Types Packs/Day Years [...] Procedure Name Priority Date/Time Associated Diagnosis Comments XR UPPER GI W/ AIR CONTRAST + KUB Routine 07/25/2023 3:35 PM EDT documented in this encounter Results * XR UPPER GI W/ AIR CONTRAST + KUB (07/25/2023 3:35 PM EDT) Anatomical Region Laterality Modality Radiographic Geovanna ging Maxwell Figueroa MD IMG XR PROCEDURES Final Result documented in this encounter Visit Diagnoses Not on filedocumented in this encounter Care Teams Surgery Scheduler Relationship Specialty Start Date End Date Yonis Ball MD PCP - General Family Medicine 05/28/23 Yonis Ball MD [address] [place] [address] PCP - [facility] 01/07/24 04/07/24 Yonis Ball MD [address] [place] [address] PCP - [facility] 04/08/24 documented as of this encounter
--- OUTSIDE RECORDS SUMMARY | 2024-12-09 07:15 | XMS_ITS | Patient Health Record ---
Author Organization [facility] [place] Address [address] [place] [address] Care Team Providers Care Rehab Nurse Name Role Phone Itz Oneill Primary Care Provider Allergies No Known Allergies Reason For Referral No Information Medications Medication SIG (Take, Route, Fr equency, [...] Problem Status W/U Status Risk Notes Problem Anxiety ([id number]) Anxiety (F41.9) Active confirmed Problem Depression ([id number]) Depression (F32.9) Active confirmed Vital Signs Blood pressure diastolic 74 mm Hg 12/03/2024 Height 71 in 12/03/2024 Blood pressure systolic 118 mm Hg 12/03/2024 Weight 193.8 lbs 12/03/2024 BMI 27.03 kg/m2 12/03/2024 Encounters Encounter Location Date Provider Diagnosis [facility] [address] [place] [address] 12/03/2024 Itz Oneill Well adult Z00.00 an d Anxiety F41.9 Assessments Encounter Date Diagnosis (ICD Code) Assessment Notes Treatment Notes Treatment Clinical Notes Section Notes 12/03/2024 Well adult (ICD-10 - Z00.00) 12/03/2024 Anxiety (ICD-10 - F41.9) Plan Of Treatment Pending Test Test Name Order Date HEMOGLOBIN A1C (GLYCO) 12/03/2024 IRON, TOTAL 12/03/2024 LIPID PANEL (CHOL/TRIG/HDL/LDL) 12/04/19 25 VITAMIN D, 25 LEVEL (TOTAL) 12/03/2024 FSH+LH+Prog+E2 12/03/2024 VIT B12 AND FOLATE 12/03/2024 THYROID PANEL (T4/TSH/FREE T3) CMP (COMP MET BARBOUR) w/eGFR CKD-EPI 2024 CBC WITH DIFF 12/03/2024 Insurance Providers Payer Name Payer Address Payer Phone Subscriber Number Group Number Insured Name Patient Relationship to Insured Coverage Start Date Coverage End Date [employer] [address] [place] [phone] [id number] Lillie Donald Self - patient is the insured Medical (General) History Medical History History ICD Code Anxiety F41.9 Depression F32.9 Surgical History Surgery Date(Month/Year) Bariatric Surgery- Dr Figueroa 01/2024 Hospitalization History Reason Date(Month/Year) Bariatric surgery 01/2024
--- OUTSIDE RECORDS SUMMARY | 2024-12-09 07:15 | XMS_ITS | Encounter Summary ---
Author Organization [facility] Address [address] [place] [address] Care Team Providers Care Appraisal Analyst Name Role Phone Yonis Ball MD Primary Care Provider [phone] Yonis Ball MD Unavailable Yonis Ball MD Unavailable Encounter Details Date Type Department Care Team (Late st Contact Info) Description 01/29/2024 Orders Only [facility] [address] [place] [address] Yonis Ball MD [address] [place] [address] Social History Tobacco Use Types Packs/Day Years [...] Procedure Name Priority Date/Time Associated Diagnosis Comments CT ABDOMEN & PELVIS W Routine 01/28/2024 8:54 AM EDT documented in this encounter Results * CT ABDOMEN & PELVIS W (01/28/2024 8:54 AM EDT) Anatomical Region Laterality Modality Radiographic Geovanna ging us Yonis Ball MD IMG XR PROCEDURES Final Result documented in this encounter Visit Diagnoses Not on filedocumented in this encounter Care Teams Appraisal Analyst Relationship Specialty Start Date End Date Yonis Ball MD PCP - General Family Medicine 05/28/23 Yonis Ball MD [address] [place] [address] PCP - [facility] CHILD ABUSE WORKER 01/07/24 04/07/24 Yonis Ball MD [address] [place] [address] PCP - [facility] CHILD ABUSE WORKER 04/08/24 documented as of this encounter
--- OUTSIDE RECORDS SUMMARY | 2024-12-09 07:15 | XMS_ITS | Clinical Summary ---
Author Organization [facility] Address [address], [address] [place] [address] Care Team Providers Care Hatch Supervisor Name Role Phone None, . Primary Care Provider Unavailabl e Allergies No known active allergies Medications VITAMINS PO Take by mouth daily. Active acetaminophen (TYLENOL) 325 MG tablet Take 650 mg by mouth every 6 hours as needed. Active ValACYclovir HCl (VALTREX PO) Take 400 mg by mouth 2 times daily. 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 Social History Tobacco Use Types Packs/Day Years Used Date Smoking Tobacco: Every Day Cigarettes 0.2 15 Tobacco Cessation:Ready to Q uit: No; Counseling Given: Yes Alcohol Use Standard Drinks/Week Comments Not Asked 0 (1 standard drink = 0.6 oz pur e alcohol) Comments Unknown Sex and Gender Information Value Date Recorded Sex Assigned at Not on file Legal Sex Female 11:01 PM EST Gender Identity Not on file Sexual Orientation Not on file Last Filed Vital Signs Vital Sign Reading Time Taken Comments Blood Pressure 108/64 11/20/2011 11:00 AM EDT Pulse 92 11/20/2011 11:00 AM EDT Temperature 36.9 C (98.4 F) 11/20/2011 11:00 AM EDT Respiratory Rate 16 11/20/2011 11:00 AM EDT Oxygen Saturation - - Inhaled Oxygen Concentration - - Weight 119.3 kg (263 lb) 11/20/2011 11:00 AM EDT Height - - Body Mass Index - - Plan of Treatment Not on file Care Teams Hatch Supervisor Relationship Specialty Start Date End Date None, . PCP - General 08/14/11
--- OUTSIDE RECORDS SUMMARY | 2024-12-09 07:15 | XMS_ITS | Encounter Summary ---
Author Organization [facility] Address [address] [place] [address] Care Team Providers Care Oven Builder Name Role Phone Yonis Ball MD Primary Care Provider [phone] Yonis Ball MD Unavailable Yonis Ball MD Unavailable Encounter Details Date Type Department Care Team (Late st Contact Info) Description 07/31/2023 Orders Only [facility] [address] [place] [address] Maxwell Figueroa MD [address] [facility] [address] [place] [address] Social History Tobacco Use Types Packs/Day Years [...] Procedure Name Priority Date/Time Associated Diagnosis Comments SCANNED LABS Routine 07/31/2023 11:43 AM EDT documented in this encounter Results * SCANNED LABS (07/31/2023 11:43 AM EDT) Maxwell Figueroa MD LAB CHG PERFORMABLES Final Resul t documented in this encounter Visit Diagnoses Not on filedocumented in this encounter Care Teams Oven Builder Relationship Specialty Start Date End Date Yonis Ball MD PCP - General Family Medicine 05/28/23 Yonis Ball MD [address] [place] [address] PCP - [facility] 01/07/24 04/07/24 Yonis Ball MD [address] [place] [address] PCP - [facility] NEUROSURGEON 04/08/24 documented as of this encounter
--- OUTSIDE RECORDS SUMMARY | 2024-12-09 07:15 | XMS_ITS | Clinical Summary ---
Author Organization [facility] [facility] tem Address [id number] [address] [place] [address] Care Team Providers Care Insurance Biller Name Role Phone Yonis Ball MD Primary Care Provider [phone] Allergies No known active allergies Medications ALPRAZolam (XANAX) 1 mg tablet Take 1 mg by mouth in the morning and 1 mg at noon and 1 mg before bedtime. 2 Active buPROPion XL (WELLBUTRIN XL) 300 mg 24 hr tablet Take 300 mg by mouth in the morning. 2 Active buPROPion XL (WELLBUTRIN XL) 150 mg 24 hr tablet Take 150 mg by mouth in the morning. 2 Active cholecalciferol , vitamin D3, 2,000 units tablet Take by mouth daily. 2 Active levonorgestreL (MIRENA) 20 mcg/24 hours (7 yrs) 52 mg IUD by intrauterine route. Active phentermine (ADIPEX-P) 37.5 mg tablet Take 37.5 mg by mouth in the morning. 2 Active ibuprofen (ADVIL,MOTRIN) 800 mg tablet Take 800 mg by mouth every 6 (six) hours as needed for pain. Active Family History Medical History Relation Name Comments Atrial fibrillation Father No Known Problems Mother Relation Name Status Comments Father Alive Mother Alive Social History Tobacco Use Types Packs/Day Years Used Date Smoking Tobacco: Every Day Cigarettes 0.5 15 Smokeless Tobacco: Never Alcohol Use Standard Drinks/Week Comments Not Currently 0 (1 standard drink = 0.6 oz pur e alcohol) Childcare Answer Date Recorded Childcare Unknown 09/17/2018 Employment Answer Date Recorded Employment Unknown 09/17/2018 Comments Unknown Sex and Gender Information Value Date Recorded Sex Assigned at Not on file Legal Sex Female 12:00 PM EDT Gender Identity Not on file Sexual Orientation Not on file Last Filed Vital Signs Vital Sign Reading Time Taken Comments Blood Pressure 130/80 07/18/2021 9:27 AM EDT Pulse - - Temperature 36.6 C (97.8 F) 07/18/2021 9:27 AM EDT Respiratory Rate - - Oxygen Saturation - - Inhaled Oxygen Concentration - - Weight 118.8 kg (262 lb) 07/18/2021 9:27 AM EDT Height 175.3 cm (5' 9 ) 07/18/2021 9:27 AM EDT Body Mass Index 38.69 07/18/2021 9:27 AM EDT Plan of Treatment Health Maintenance Due Date Last Done Comments Depression Screening 1998 Tobacco Screening 1998 Adult BMI Screening 2004 DTaP,Tdap and Td Vaccines (1 - Tdap) 2005 Pap Smear 07/07/2007 Influenza Vaccine 12/07/2024 Medical Devices Not on file [place] [address] [place] [address] MEDICAID [facility] MEDICAID Care Teams Insurance Biller Relationship Specialty Start Date End Date Yonis Ball MD PCP - General Family Medicine 07/18/21
--- OUTSIDE RECORDS SUMMARY | 2024-12-09 07:15 | XMS_ITS | Patient Health Record ---
Author Organization [facility] Address [address] [place] [address] Care Team Providers Care Distribution Lead Name Role Phone Dr. Jens Stephenson Primary Care Provider Philly Mercer Unavailable [phone] Arnav Vazquez Unavailable [phone] Enedina Duncan Unavailable [phone] Reason For Referral No Information Encounters Encounter Location Date Provider Diagnosis [facility] [address] [place] [address] 09/08/2024 Jens Stephenson [facility] [address] [place] [address] 09/16/2024 Jens Stephenson [facility] [address] [place] [address] 11/03/2024 Jens Stephenson [facility] [address] [place] [address] 12/26/2023 Philly Ruslan Acute gingivitis, plaque induced K05.00 [facility] [address] [place] [address] 07/31/2024 Jens Stephenson Cracked tooth K03.81 ; Necrosis of pulp K04.1 and Dental caries on pit and fissure surface penetrating into dentin K02.52 [facility] [address] [place] [address] 08/04/2024 Jens Stephenson Dental caries on pit and fissure surface penetrating into dentin K02.52 [facility] [address] [place] [address] 08/18/2024 Jens Sachin Dental caries on pit and fissure surface penetrating into dentin K02.52 [facility] [address] [place] [address] 12/26/2023 Enedina Duncan Dental caries on pit and fissure surface penetrating into dentin K02.52 and Cracked tooth K03.81 Assessments Encounter Date Diagnosis (ICD Code) Assessment Notes Treatment Notes Treatment Clinical Notes Section Notes 12/26/2023 Dental caries on pit and fissure surface penetrating into dentin (ICD-10 - K02.52) 12/26/2023 Acute gingivitis, plaque induced (ICD-10 - K05.00) 07/31/2024 Cracked tooth (ICD-10 - K03.81) 08/04/2024 Dental caries on pit and fissure surface penetrating into dentin (ICD-10 - K02.52) 08/18/2024 Dental caries on pit and fissure surface penetrating into dentin (ICD-10 - K02.52) 07/31/2024 Necrosis of pulp (ICD-10 - K04.1) 12/26/2023 Cracked tooth (ICD-10 - K03.81) 07/31/2024 Dental caries on pit and fissure surface penetrating into dentin (ICD-10 - K02.52) Plan Of Treatment Next Appt Details Provider Name:Jens Stephenson, 0 12/09/2024 11:15:00 AM, [address] [place], [address], Provider Name:Jens Stephenson, 0 12/28/2024 10:10:00 AM, [address] [place], [address], Provider Name:Philly Mercer , 03/02/2025 10:15:00 AM, [address], [place], [address], Insurance Providers Payer Name Payer Address Payer Phone Subscriber Number Group Number Insured Name Patient Relationship to Insured Coverage Start Date Coverage End Date Dental [employer] [place] Medicaid [address] [place] [phone] [id number] RIGO LIN Self - patient is the insured 5 Dental Wrap C [facility] [address] [place] [address] [id number] RIGO LIN Self - patient is the insured 5 zDental [employer] [place] Medicaid [address] [place] [address] [id number] RIGO LIN Self - patient is the insured 4 4 Dental Wrap ABD [facility] [address] [place] [address] [id number] RIGO LIN Self - patient is the insured 4 4
--- OUTSIDE RECORDS SUMMARY | 2024-12-09 07:15 | XMS_ITS | Encounter Summary ---
Author Organization [employer] Address [id number] [address] [place] [address] Care Team Providers Care Associate Programmer Name Role Phone Yonis Ball MD Primary Care Provider [phone] Encounter Details Date Type Department Care Team (Late st Contact Info) Description 08/29/2021 Telephone [facility] [address] [place] [address] Carol Sousa RMA Social History Tobacco Use Types Packs/Day Years [...] on file documented as of this encounter Miscellaneous Notes * Telephone Encounter - [place] - 08/29/2021 9:50 AM EDT We scheduled patient's surgery for August 28, 2021. She was given her test results and is re-considering the surgery right now. She would like to delay the Davinci cholecystectomy for right now. We willkeep in contact with Lillie to get her back on Dr. Owens's surgery schedule before he leaves the area. * Telephone Encounter - [place] - 08/29/2021 9:50 AM EDT I called Lillie & left a message to call the office. I had left a message asking if she was ready to re-schedule her surgery & that Dr. Owens has a surgery opening on 09/27/2021. documented in this encounter Plan of Treatment Not on file documented as of this encounter Visit Diagnoses Not on filedocumented in this encounter Care Teams Associate Programmer Relationship Specialty Start Date End Date Yonis Ball MD PCP - General Family Medicine 07/18/21 documented as of this encounter
--- OUTSIDE RECORDS SUMMARY | 2024-12-09 07:15 | XMS_ITS | Encounter Summary ---
Author Organization [facility] Address [address] [place] [address] Care Team Providers Care Electrical Wirer Name Role Phone Yonis Ball MD Primary Care Provider [phone] Yonis Ball MD Unavailable Yonis Ball MD Unavailable Encounter Details Date Type Department Care Team (Late st Contact Info) Description 07/29/2023 Orders Only [facility] [address] [place] [address] Yonis Ball MD [address] [place] [address] Social History Tobacco Use Types Packs/Day Years [...] Procedure Name Priority Date/Time Associated Diagnosis Comments US GALLBLADDER Routine 07/25/2023 1:11 PM EDT ELECTROCARDIOGRAM REPORT Routine 024 11:39 AM EDT XR CHEST 2 VIEWS Routine 07/25/2023 11:2 7 AM EDT documented in this encounter Results * US gallbladder (07/25/2023 1:11 PM EDT) Anatomical Region Laterality Modality Gall bladder Ultrasound us Yonis Ball MD IMG US PROCEDURES Final Result * Electrocardiogram Report (07/25/2023 11:39 AM EDT) us Yonis Ball MD IN CLINIC/BEDSIDE ORDERABLES Fin al Result * XR chest 2 views (07/25/2023 11:27 AM EDT) Anatomical Region Laterality Modality Chest Radiographic Geovanna ging us Yonis Ball MD IMG XR PROCEDURES Final Result documented in this encounter Visit Diagnoses Not on filedocumented in this encounter Care Teams Electrical Wirer Relationship Specialty Start Date End Date Yonis Ball MD PCP - General Family Medicine 05/28/23 Yonis Ball MD [address] [place] [address] PCP - [facility] AUTOMOTIVE STARTER REPAIRER 01/07/24 04/07/24 Yonis Ball MD [address] [place] [address] PCP - [facility] AUTOMOTIVE STARTER REPAIRER 04/08/24 documented as of this encounter
[2024-12-09 08:06] LABS: Hematocrit 43.3 % (36.0-48.0); Hemoglobin 14.2 g/dL (12.0-16.0); Immature Granulocytes Abs Auto 0.02 10^3/uL (0.00-0.03); Immature Granulocytes Pct Auto 0.2 % (0.0-0.5); Lymphocytes Absolute Auto 3.0 10^3/uL (1.2-3.8); Mean Corpuscular HGB Conc 32.8 g/dL (29.9-35.2); Mean Corpuscular Hemoglobin 31.6 pg (26.7-34.0); Mean Corpuscular Volume 96.2 fL (81.0-99.0); Platelet Count 173 10^3/uL (150-450); Red Blood Count 4.50 10^6/uL (4.20-5.40); White Blood Count 8.6 10^3/uL (4.0-11.0)
[2024-12-09 10:28] LABS: Iron 75.0 ug/dL (50.0-170.0)
[2024-12-09 11:51] LABS: Alanine Aminotransferase 19 U/L (14-59); Albumin Globulin Ratio 0.9; Albumin Level 3.8 g/dL (3.4-5.0); Alkaline Phosphatase 81 U/L (46-116); Anion Gap 11.8; Aspartate Amino Transferase 13 U/L (15-37); Blood Urea Nitrogen 13.0 mg/dL (7.0-18.0); Calcium 9.5 mg/dL (8.5-10.1); Carbon Dioxide 28.0 mmol/L (21.0-32.0); Chloride 108 mmol/L (98-107); Cholesterol 163 mg/dL (<=200); Estimated GFR (African America >60 (>=60 mL/min/1.73m^2); Estimated GFR (Non-African Ame >60 (>=60 mL/min/1.73m^2); Free T3 2.73 pg/mL (2.18-3.98); Globulin 4.0 g/dL; Glucose 86 mg/dL (74-106); HDL Cholesterol 49 mg/dL (40-60); Potassium 3.8 mmol/L (3.5-5.1); Sodium 144 mmol/L (136-145); Thyroid Stimulating Hormone 2.859 uIU/mL (0.358-3.740); Total Protein 7.8 g/dL (6.4-8.2); Triglycerides 56 mg/dL (<=150); VLDL CHOLESTEROL 11.2 mg/dL
[2024-12-09 13:07] LABS: Folate 5.10 ng/mL (8.60-58.90)
[2024-12-10 04:07] LABS: FSH 5.5 mIU/mL (.); Vitamin B12 391 pg/mL (232-1245)
== END 2024-12-09 07:12 | disposition home or self-care (01) ==
LOC: LAB 07:13
PROVIDERS: PCP Family Medicine; Visit Provider Family Medicine
DX: Z00.00 Encounter for general adult medical examination without abnormal findings (principal)
CPT/HCPCS: 36415; 80053; 80061; 82306; 82607; 82670; 82746; 83001; 83002; 83036; 83540; 84144; 84436; 84443; 84481; 85025

== ENCOUNTER 2025-03-29 20:38 | Outpatient (REF) | payer OTHER, SELFPAY ==
--- OUTSIDE RECORDS SUMMARY | 2024-02-12 06:20 | XMS_ITS ---
Author Organization [facility] Address [address] [place] [address] Care Team Providers Care Marshmallow Machine Operator Name Role Phone Dr. Jens Stephenson Primary Care Provider [phone] Enedina Duncan [phone] REASON FOR VISIT FILLING Encounters Encounter Location Date Provider Diagnosis [facility] [address] [place] [address] 02/12/2024 Enedina Duncan Plan Of Treatment Next Appt Details Provider Name:Jens Stephenson, 0 04/22/2025 09:55:00 AM, [address] [place], [address], Provider Name:Enedina Duncan, 05/24/2025 09:30:00 AM, [address] [place], [address], Provider Name:Jens Stephenson, 0 07/15/2025 08:30:00 AM, [address] [place], [address], Provider Name:Jens Stephenson, 0 07/19/2025 09:30:00 AM, [address] [place], [address], Provider Name:Philly Mercer , 09/22/2025 09:15:00 AM, [address] [place], [address], Progress Notes * RILEYRIGO RDOB:[birth year] (39 yo F)Acc No.[id number]:02/12/2024 Patient:?WESLYRIGO AMARO R :?Enedina DuncanDOB:1985???Age:38 Y???Sex: FemaleDate:4Phone:[phone]:[address] [place] [address] [place], [id number]:Dr. Jens Stephenson Subjective: * Chief Complaints: * F ILLING * Electronic signature of Enedina Duncan , DMD on 03/29/2025 at 02:51 PM ESTSign off status: Pending * Provider: Shahrzad Duncan Date: 04/13/2023 Generated for Printing/Faxing/eTransmitting on:?03/29/2025 02:51 PM EST
--- OUTSIDE RECORDS SUMMARY | 2024-02-17 08:00 | XMS_ITS ---
Author Organization [facility] Address [address] [place] [address] Care Team Providers Care Auditing Manager Name Role Phone Dr. Jens Stephenson Primary Care Provider Enedina Duncan [phone] REASON FOR VISIT FILLING Encounters Encounter Location Date Provider Diagnosis [facility] [address] [place] [address] 02/17/2024 Enedina Duncan Plan Of Treatment Next Appt Details Provider Name:Jens Stephenson, 0 04/22/2025 09:55:00 AM, [address] [place], [address], Provider Name:Enedina Duncan, 05/24/2025 09:30:00 AM, [address] [place], [address], Provider Name:Jens Stephenson, 0 07/15/2025 08:30:00 AM, [address] [place], [address], Provider Name:Jens Stephenson, 0 07/19/2025 09:30:00 AM, [address] [place], [address], Provider Name:Philly Mercer , 09/22/2025 09:15:00 AM, [address] [place], [address], Progress Notes * RILEYRIGO RDOB:[birth year] (39 yo F)Acc No.[id number]:02/17/2024 Patient:?WESLYRIGO AMARO R :?Enedina DuncanDOB:1985???Age:38 Y???Sex: FemaleDate:4Phone:[phone]:[address] [place] [address] [place], [id number]:Dr. Jens Stephenson Subjective: * Chief Complaints: * F ILLING * Electronic signature of Enedina Duncan , DMD on 03/29/2025 at 02:51 PM ESTSign off status: Pending * Provider: Shahrzad Duncan Date: 04/18/2023 Generated for Printing/Faxing/eTransmitting on:?03/29/2025 02:51 PM EST
--- OUTSIDE RECORDS SUMMARY | 2024-11-17 05:35 | XMS_ITS ---
Author Organization [facility] Address [address] [place] [address] Care Team Providers Care Bpm Analyst Name Role Phone Dr. Jens Stephenson Primary Care Provider REASON FOR VISIT EXT Encounters Encounter Location Date Provider Diagnosis [facility] Kal[address]esh [address] [place] [address] 2024 Jens Stephenson Plan Of Treatment Next Appt Details Provider Name:Jens Stephenson, 0 04/22/2025 09:55:00 AM, [address] [place], [address], Provider Name:Enedina Duncan, 05/24/2025 09:30:00 AM, [address] [place], [address], Provider Name:Jens Stephenson, 0 07/15/2025 08:30:00 AM, [address] [place], [address], Provider Name:Jens Stephenson, 0 07/19/2025 09:30:00 AM, [address] [place], [address], Provider Name:Philly Mercer , 09/22/2025 09:15:00 AM, [address] [place], [place], [address], Progress Notes * RIGO LIN RDOB:[birth year] (39 yo F)Acc No.[id number]:11/17/2024 Patient:?RILEYRIGO R :?Jens Stephenson DDSDOB:1985???Age:39 Y???Sex: FemaleDate:11/17/2024Phone:[phone]:[address] [place], [id number] Subjective: * Chief Complaints: * E XT Billing Information: * Procedure Codes: * Electronic signature of Dr. Jens Stephenson , DMD, [id number] on 03/29/2025 at 02:52 PM ESTSign off status: Pending * Provider: Shharzad Stephenson DDS Date: 0 11/17/2024 Generated for Printing/Faxing/eTransmitting on:?03/29/2025 02:52 PM EST
--- OUTSIDE RECORDS SUMMARY | 2024-12-23 06:00 | XMS_ITS ---
Author Organization [facility] Address [address] [place] [address] Care Team Providers Care Service Coordinator Name Role Phone Dr. Jens Stephenson Primary Care Provider [phone] REASON FOR VISIT FILLING Encounters Encounter Location Date Provider Diagnosis [facility] [address] [place] [address] 12/23/2024 Jens Stephenson Plan Of Treatment Next Appt Details Provider Name:Jens Stephenson, 0 04/22/2025 09:55:00 AM, [address] [place], [address], Provider Name:Enedina Duncan, 05/24/2025 09:30:00 AM, [address] [place], [address], Provider Name:Jens Stephenson, 0 07/15/2025 08:30:00 AM, [address] [place], [address], Provider Name:Jens Stephenson, 0 07/19/2025 09:30:00 AM, [address] [place], [address], Provider Name:Philly Mercer , 09/22/2025 09:15:00 AM, [address] [place], [address], Progress Notes * RIGO LIN RDOB:[birth year] (39 yo F)Acc No.[id number]:12/23/2024 Patient:?RILEYRIGO R :?Jens Stephenson DDSDOB:1985???Age:39 Y???Sex: FemaleDate:12/23/2024Phone:[phone]:[address] [place] [address] JON VIVEROS, [id number] Subjective: * Chief Complaints: * F ILLING * Electronic signature of Dr. Jens Stephenson , [facility], [id number] on 03/29/2025 at 02:52 PM ESTSign off status: Pending * Provider: Shahrzad Stephenson DDS Date: 0 12/23/2024 Generated for Printing/Faxing/eTransmitting on:?03/29/2025 02:52 PM EST
--- OUTSIDE RECORDS SUMMARY | 2025-01-13 05:45 | XMS_ITS | Continuity of Care Document ---
Author Organization [employer] [facility] Address [address] [place] [address] [place] [address] Phone Care Team Providers Care Band Scroll Saw Operator Name Role Phone Monae Brito CNP Unavailable Unavailable Procedures Procedure Date OFFICE/OUTPATIENT VISIT, [facility] Advance Directives Directive Yes / No Effective Date File Name No Information Encounters Encounter Description Practice Location Reason(s) For Visit Diagnoses Date Provider Encounter Disposition OFFICE/OUTPAT IENT VISIT, [facility], [address] [place] [address], [id number], [place] tel:[phone] [facility] No Information Daryl Licona. [address] [place] [address], [id number], [place]. tel:[phone], [address] [place] [address], [id number], [place] tel:[phone] [facility] No Information Daryl Licona. [address], [id number], [place]. tel:[phone], [address] [place] [address], [id number], [place] tel:[phone] [facility] No Information Daryl Licona. [address] [facility] [address], [id number], [place]. tel:[phone], [address] [place] [address], [id number], [place] tel:[phone] [facility] No Information Daryl Licona. [address] [facility] [address], [place], [place], [id number], [place]. tel:[phone], [address] [place] [address] [address], [place], [place], [id number], [place] tel:[phone] [facility] No Information Daryl Licona. [address] [facility] [address], [place], [place], [id number], [place]. tel:[phone], [address] [place] [address] [address], [place], [place], [id number], [place] tel:[phone] [facility] IP No Information Brookeneha Maxwell. [address] [facility] [address], [place], [place], [id number], [place]. tel:[phone], [address] [place] [address] [address], [place], [place], [id number], [place] tel:[phone] [facility] IP No Information Daryl Licona. [address] [facility] [address], [place], [place], [id number], [place]. tel:[phone], [address] [place] [address] [address], [place], [place], [id number], [place] tel:[phone] [facility] No Information Carolina Arreola. [address] [facility] [address], [place], [place], [id number], [place]. tel:[phone], [address] [place] [address] [address], [place], [place], [id number], [place] tel:[phone] [facility] No Information Wong Lawrence. [address] [facility] [address], [place], [place], [id number], [place]. tel:[phone], [address] [place] [address] [address], [place], [place], [id number], [place] tel:[phone] [facility] No Information Carolina Arreola. [address] [facility] [address], [place], [place], [id number], [place]. tel:[phone] Family History Family Member Type Diagnosis Age At Onset No Information Payers Payer name Insurance type Identifiers Authorization(s) Com ments [employer] [place] Medicaid CI criber ID: [id number] p Name: Coverage Status Eligibility Check on: UnknownRelationship to Subscriber: selfPayer Address: [address], [id number], [facility] Phone: Social History Type Description Quantity Date Captured Comments Sex Female Smoking Status No Information Current Gender Female (finding) Chief Complaint And Reason For Visit No Information Plan Of Treatment Date Type Action Status Appointment Lillie Hayes BOOKED History Of Present Illness Encounter Date Complaint History Of Prese nt Illness No Information Functional Status Date Description Comments No Information Instructions Date Instruction Additional Infor mation No Information Assessments Type Assessment Date No Information
--- OUTSIDE RECORDS SUMMARY | 2025-03-29 15:00 | XMS_ITS | Encounter Summary ---
Author Organization [facility] Address [address] [place] [address] Care Team Providers Care Sparker And Patcher Name Role Phone Yonis Ball MD Primary Care Provider [phone] Yonis Ball MD Unavailable Reason for Visit * ReasonCommentsWell Women Visit Encounter Details DateTypeDepartmentCare Team (Latest Contact Info)Bvpvqlxzwgu26/22/2025 3:00 PM ESTProcedure Visit ENIO MCKEON [address] [place] [address] Daphne Smith PA [address] [facility] [place], [place] [id number] Well woman exam with routine gynecological exam Social History Tobacco UseTypesPacks/DayYears UsedDateSmoking Tobacco: Every [id number] Started: 2004Passive Smoke Exposure: PastAlcohol UseStandard Drinks/WeekComments Defer0 (1 standard drink = 0.6 oz pure alcohol)CommentsUnknownSex and Gender InformationValueDate RecordedSex Assigned at BirthNot on fileLegal Sex Uvunfc9506/20/2022 7:20 PM EDTGender IdentityNot on fileSexual OrientationNot on filedocumented as of this encounter Progress Notes * BALDOMERO Loo - 03/29/2025 3:00 PM EST Reason for Appointment: Patient ID: Lillie Hayes is a 39 y.o. female who presents for Well Women Visit Patient presents today for Annual Exam. MEDICATIONS Current Outpatient Medications Medication Instructions buPROPion XL (WELLBUTRIN XL) 300 mg, Oral, Daily, Do not crush, chew, or split. cholecalciferol (VITAMIN D-3) 2,000 Units, Oral, Daily lamoTRIgine (LaMICtal) 25 MG tablet 1 PO QHS x 2 weeks then 2 PO QHS Levonorgestrel (Mirena, 52 MG,) 20 MCG/DAY intrauterine device 1 Device, Intrauterine, Continuous nicotine polacrilex (NICOTINE MINI) 4 mg, Mouth/Throat, Every 2 hour PRN phentermine (ADIPEX-P) 37.5 mg, Oral, Daily before breakfast ALLERGIES No Known Allergies PROBLEMS Active Ambulatory Problems Diagnosis Date Noted Calculus of bile duct without cholecystitis and without obstruction 06/11/2023 Generalized anxiety disorder 06/11/2023 Non-seasonal allergic rhinitis 06/11/2023 Major depressive disorder, recurrent, mild 06/11/2023 Overactive bladder 06/11/2023 Vitamin D deficiency 06/11/2023 Morbid obesity due to excess calories ([facility]) 06/11/2023 Annual physical exam 06/11/2023 Prediabetes 06/12/2023 Tobacco use disorder, continuous 11/01/2023 Resolved Ambulatory Problems Diagnosis Date Noted No Resolved Ambulatory Problems Past Medical History: Diagnosis Date ASCUS with positive high risk HPV cervical At low risk for fall ROSANA (generalized anxiety disorder) H/O LEEP HGSIL (high grade squamous intraepithelial lesion) on Pap smear of cervix Intrauterine device surveillance MDD (major depressive disorder), recurrent episode, mild OAB (overactive bladder) Obesity (BMI 30-39.9) Pap smear of cervix to confirm normal smear following abnormal smear Seasonal allergic rhinitis, unspecified trigger HISTORY PAST MEDICAL HISTORY SOCIAL HISTORY Past Medical History: Diagnosis Date ASCUS with positive high risk HPV cervical At low risk for fall ROSANA (generalized anxiety disorder) H/O LEEP HGSIL (high grade squamous intraepithelial lesion) on Pap smear of cervix Intrauterine device surveillance MDD (major depressive disorder), recurrent episode, mild OAB (overactive bladder) Obesity (BMI 30-39.9) Pap smear of cervix to confirm normal smear following abnormal smear Seasonal allergic rhinitis, unspecified trigger Vitamin D deficiency Social History Tobacco Use Smoking status: Every Day Current packs/day: 1.00 Average packs/day: 1 pack/day for 21.0 years (21.0 ttl pk-yrs) Types: Cigarettes Start date: 2004 Passive exposure: Past Smokeless tobacco: Not on file Vaping Use Vaping status: Unknown Substance Use Topics Alcohol use: Defer Drug use: Defer FAMILY HISTORY Family History Problem Relation Name Age of Onset Thyroid disease Mother Atrial fibrillation Father SURGICAL HISTORY Past Surgical History: Procedure Laterality Date CERVICAL BIOPSY W/ LOOP ELECTRODE EXCISION 11/16/2019 HGSIL SECTION, LOW TRANSVERSE 09/23/2013 HAND SURGERY Bilateral REVIEW OF SYSTEMS Review of Systems: Review of Systems Constitutional: Negative. HENT: Negative. Eyes: Negative. Respiratory: Negative. Cardiovascular: Negative. Gastrointestinal: Negative. Genitourinary: Negative. Musculoskeletal: Negative. Skin: Negative. Neurological: Negative. All other systems reviewed and are negative. Hematological: Negative. Endocrine: Negative. Allergic/Immunologic: Negative. OBJECTIVE Objective: Physical Exam Constitutional: Appearance: Normal appearance. She is well-developed. Genitourinary: Vulva normal. Right Adnexa: not tender and no mass present. Left Adnexa: not tender and no mass present. No cervical discharge. IUD strings visualized. Breasts: Breasts are soft. Right: Normal. Left: Normal. HENT: Head: Normocephalic. Nose: Nose normal. Mouth/Throat: Mouth: Mucous membranes are moist. Cardiovascular: Rate and Rhythm: Normal rate and regular rhythm. Pulmonary: Effort: Pulmonary effort is normal. Breath sounds: Normal breath sounds. Abdominal: General: Bowel sounds are normal. There is no distension. Palpations: Abdomen is soft. Tenderness: There is no abdominal tenderness. There is no guarding or rebound. Musculoskeletal: General: No swelling. Normal range of motion. Cervical back: Normal range of motion. Right lower leg: No edema. Left lower leg: No edema. Neurological: General: No focal deficit present. Mental Status: She is alert and oriented to person, place, and time. Skin: General: Skin is warm and dry. Psychiatric: Mood and Affect: Mood normal. Behavior: Behavior normal. Vitals and nursing note reviewed. Exam conducted with a street light cleaner present. Vitals: Estimated body mass index is 47 kg/m?? as calculated from the following: Height as of 11/01/23: 5' 11 . Weight as of 11/01/23: 337 lb. BP: No LMP recorded. ASSESSMENT & PLAN ICD-10-CM 1. Well woman exam with routine gynecological exam Z01.419 Pap Smear HPV DNA probe, amplified Orders Placed This Encounter Procedures HPV DNA probe, amplified Annual Wellness Exam: Patient presents today for routine annual exam. Patient states she has complaints of spotting. Patients vitals were reviewed and within normal limits. Growth and development is noted to be appropriate for age. Menstrual history is noted as nonexistent due to IUD inserted. No mental health concerns was expressed. Pap Smear: Speculum was inserted into the vagina and pap was obtained without difficulty. HPV testing was performed per age guideline. Patient was advised that pap results could take anywhere from 7 to 10 days to receive and our office will reach out to the patient with those once we have them. Patient can also view results via [employer]. I reinforced importance of condom use for STI prevention. Patient requested cultures to be performed with today's visit. Breast Exam: Upon examination, clinical breast exam was noted to be normal. Patient was counseled on breast self-awareness, including the importance of knowing what is normal for her own breasts and promptly reporting any changes such as new lumps, skin dimpling, nipple discharge, or pain. Screening mammogram recommended annually beginning at age 40 or earlier if risk factors are present. Discussed signs and symptoms of breast cancer and when to seek medical attention. Answered all patient questions. Contraceptive Counseling (if applicable): Patient is currently using IUD as a form of contraceptive. Patient is due to have IUD taken out and reinserted. Follow Up: Patient is to return to our office in one year for annual exam unless needed otherwise. Patient advised to return to office to have Mirena IUD taken out and reinserted. Documented by Peggy Meyers LPN on behalf of: BALDOMERO Loo documented in this encounter Plan of Treatment NameTypePriorityAssociated DiagnosesOrder SchedulePap SmearPathology and CytologyRoutine Well woman exam with routine gynecological exam Ordered: 03/29/2025HPV DNA probe, amplifiedMicrobiologyRoutine Well woman exam with routine gynecological exam Ordered: 03/29/2025documented as of this encounter Visit Diagnoses Diagnosis Well woman exam with routine gynecological exam Routine gynecological examination documented in this encounter Care Teams Team MemberRelationshipSpecialtyStart DateEnd Date Yonis Ball MD [address] [place] [address] [facility] - [facility] Yonis Ball MD [address] [place] [address] PCP - [facility]04/08/24documented as of this encounter
--- OUTSIDE RECORDS SUMMARY | 2025-03-29 20:41 | XMS_ITS | Clinical Summary ---
Author Organization [facility] Healthcare Address [address] [place] [address] Care Team Providers Care Dental Equipment Technician Name Role Phone Yonis Ball MD Primary Care Provider [phone] Yonis Ball MD Unavailable Allergies No known active allergies Medications MedicationSigDispense QuantityRefillsLast FilledStart DateEnd DateStatus Levonorgestrel (Mirena, 52 MG,) 20 MCG/DAY intrauterine device 1 Device by Intrauterine route continuouslyActive buPROPion XL (Wellbutrin XL) 300 MG 24 hr tablet Indications:Major depressive disorder, recurrent episode, mildTake 1 tablet (300 mg) by mouth Daily Do not crush, chew, or split. 30 tablet ctive lamoTRIgine (LaMICtal) 25 MG tablet Indications:Moderate recurrent major depression (HCC)1 PO QHS x 2 weeks then 2 PO QHS 60 tablet ctive cholecalciferol (Vitamin D-3) 50 MCG (2000 UT) tablet Indications:Vitamin D deficiencyTake 2,000 Units by mouth Daily 90 tablet ctive phentermine (Adipex-P) 37.5 MG tablet Indications:Morbid obesity due to excess calories (CMS-HCC)Take 1 tablet (37.5 mg) by mouth in the morning. Take before meals. 30 tablet 11/01/2023ctive nicotine polacrilex (Nicotine Mini) 4 MG lozenge Indications:Tobacco use disorder, continuousDissolve 1 lozenge (4 mg) in the mouth every 2 (two) hours if needed for smoking cessation 100 lozenge ctive Active Problems ProblemNoted DateDiagnosed DateTobacco use disorder, wclhjwhyxj89/26/2024 Assessment & Plan (11/01/2023 11:45 AM EDT): Wants to quit smoking and start nicotine replacement. Dzovbuspmbq04/06/2024alculus of bile duct without cholecystitis and without drnorkbyvnw18/05/2024Generalized anxiety pcjofnke87/05/2024 Assessment & Plan (11/01/2023 11:44 AM EDT): [...] to notice improvement in mood. Non-seasonal allergic bwpheqby23/05/2024Major depressive disorder, recurrent, mild06/11/2023 Assessment & Plan (11/01/2023 11:44 AM EDT): Mood much improved and continue medication. Assessment & Plan (09/13/2023 12:51 PM EDT): Continued symptoms and add lamictal. Continue wellbutrin at current dose. Warned will take 2-3 weeks to notice improvement in mood. Assessment & Plan (06/11/2023 10:42 AM EST): Severe symptoms and resume wellbutrin. Warned will take 2-3 weeks to notice improvement in mood. Overactive ghwxpjl6706/11/2023Vitamin D nztnjudzqp47/05/2024Morbid obesity due to excess dtbxjzxy99/05/2024 Assessment & Plan (11/01/2023 11:45 AM EDT): Patient doing well with adipex but gained weight this month. Tolerating well with only mild dry mouth. Continue with dietary changes and less calories. Need to limit snacking and smaller portions. Continue healthier choices. Need regular aerobic exercise 30 minutes at a time 5-6 days a week. Refillfor another month. OARRS reviewed. Continue meds as [...] Continue medications as prescribed. Refer to [facility] to discuss surgical options. Annual physical exam06/11/2023 Encounters DateTypeDepartmentCare XjijRdkwkwbkpug53/22/2025 3:00 PM ESTProcedure Visit [facility] [place] [address] Daphne Smith PA Well woman exam with routine gynecological exam03/29/2025amboo flowsheet [facility] [address] [place] [address] Daphne Smith PA 03/08/20[place] [address] Kaylin Perez MA 02/09/2025 10:50 [place] [phone] Yusuf Morelos DO Vaginal discharge; Irregular periods/menstrual liwqob6902/09/2025External Result Encounter [facility] External Department Unsolicited Daphne Smith PA 02/09/2025amboo flowsheet [facility] [address] [facility] [place] [address] Yusuf Morelos DO from Last 3 Months Family History Medical HistoryRelationNameCommentsAtrial fibrillationFatherThyroid disease MotherRelationNameStatusCommentsFatherAliveMotherAlive Social History Tobacco UseTypesPacks/DayYears UsedDateSmoking Tobacco: Every MwhGtuuzgpedk303 Started: 2004Passive Smoke Exposure: Past Tobacco Cessation:Ready to Q uit: Not Asked; Counseling Given: Yes Alcohol UseStandard Drinks/WeekCommentsDefer0 (1 standard drink = 0.6 oz pure alcohol)CommentsUnknownSex and Gender InformationValueDate RecordedSex Assigned at BirthNot on fileLegal JrjIopfdo39/15/2023 7:20 PM EDTGender Identity Not on fileSexual OrientationNot on file Last Filed Vital Signs Vital SignReadingTime TakenCommentsBlood Qltdakcl128/7411 11:22 AM EST Gxbrw09252/26/2024 11:19 AM VBOAwtgdxqzvay64.2 ??C (97.1 ??F)11/01/2023 11:19 AM EDTRespiratory Vkci677911/01/2023 11:19 AM EDTOxygen Egxqflmloz33%11/01/2023 11:19 AM EDTInhaled Oxygen Concentration--Egkxsy499 kg (337 lb)11/01/2023 11:19 AM EDT Pyixgi700.3 cm (5' 11 )11/01/2023 11:19 AM EDTBody Mass Rtkpj880311/01/2023 11:19 AM EDT Plan of Treatment Health MaintenanceDue DateLast DoneCommentsPneumococcal Vaccine: Pediatrics (0 to 5 Years) and At-Risk Patients (6 to 64 Years) (1 of 2 - PCV)2005Pap Smear07/07/2007Cervical Cancer Vmfvkdezx79/31/2017HPV/Yntwhf8607/06/2016Influenza Vaccine (#1)2024 Procedures Procedure NamePriorityDate/TimeAssociated DiagnosisCommentsRECURRENT VAGINITIS (HTRX)Hsxyytq0602/09/2025 12:44 PM EST from Last 3 Months Results * RECURRENT VAGINITIS (HTRX) (02/09/2025 12:44 PM EST)ComponentValueRef Range Test MethodAnalysis TimePerformed AtPathologist SignatureATOPOBIUM VAGINAE0 19.961 - 24.689 ppm02/11/2025 6:03 AM ESTHealthTrackRx at LabPortATOPOBIUM VAGINAENot Vvnnldog38.961 - 24.689 ppm02/11/2025 6:03 AM ESTHealthTrackRx at LabPortBVAB 2,3 (BACTERIAL VAGINOSIS ASSOCIATED BACTERIA 2, 3); MOBILUNCUS SPP 019.961 - 24.689 ppm02/11/2025 6:03 AM ESTHealthTrackRx at LabPortBVAB 2,3 (BACTERIAL VAGINOSIS ASSOCIATED BACTERIA 2, 3); MOBILUNCUS SPPNot Detected 19.961 - 24.689 ppm02/11/2025 6:03 AM ESTHealthTrackRx at LabPortCANDIDA ALBICANS, PARAPSILOSIS, WNHNRTOCFL138.000 - 30.347 ppm02/11/2025 6:03 AM EST [facility] at LabPortCANDIDA ALBICANS, PARAPSILOSIS, TROPICALISNot Detected 23.000 - 30.347 ppm02/11/2025 6:03 AM ESTHealthTrackRx at LabPortCANDIDA KVNZPJLN939.000 - 31.618 ppm02/11/2025 6:03 AM ESTHealthTrackRx at LabPort LAURIE GLABRATANot Nwnmecor42.000 - 31.618 ppm02/11/2025 6:03 AM EST [facility] at LabPortCANDIDA IDNAUX752.000 - 30.873 ppm02/11/2025 6:03 AM ESTHealthTrackRx at LabPortCANDIDA KRUSEINot Rzkarrzv18.000 - 30.873 ppm 02/11/2025 6:03 AM ESTHealthTrackRx at LabPortCHLAMYDIA MZLMQTPTWRW545.000 - 31.586 ppm02/11/2025 6:03 AM ESTHealthTrackRx at LabPortCHLAMYDIA TRACHOMATIS Not Zstaekfp10.000 - 31.586 ppm02/11/2025 6:03 AM ESTHealthTrackRx at LabPort GARDNERELLA CUPPJXWIZ644.961 - 24.689 ppm02/11/2025 6:03 AM ESTHealthTrackRx at LabPortGARDNERELLA VAGINALISNot Rwnqzunk97.961 - 24.689 ppm02/11/2025 6:03 AM ESTHealthTrackRx at LabPortMEGASPHAERA (TYPES 1, 2)019.961 - 24.689 ppm 02/11/2025 6:03 AM ESTHealthTrackRx at LabPortMEGASPHAERA (TYPES 1, 2)Not Cithykkz08.961 - 24.689 ppm02/11/2025 6:03 AM ESTHealthTrackRx at LabPort NEISSERIA QHOYABWNMNS350.000 - 32.587 ppm02/11/2025 6:03 AM ESTHealthTrackRx at LabPortNEISSERIA GONORRHOEAENot Kqxtszuz50.000 - 32.587 ppm02/11/2025 6:03 AM ESTHealthTrackRx at LabPortTRICHOMONAS MGVUBMSWF247.000 - 31.995 ppm 02/11/2025 6:03 AM ESTHealthTrackRx at LabPortTRICHOMONAS VAGINALISNot Qnbassdz18.000 - 31.995 ppm02/11/2025 6:03 AM ESTHealthTrackRx at LabPort MYCOPLASMA RAKPMHDNHS742.961 - 24.689 ppm02/11/2025 6:03 AM ESTHealthTrackRx at LabPortMYCOPLASMA GENITALIUMNot Ustlvlqt87.961 - 24.689 ppm02/11/2025 6:03 AM ESTHealthTrackRx at LabPortSpecimen (Source)Anatomical Location / LateralityCollection Method / VolumeCollection TimeReceived TimeTissue 02/09/2025 12:44 PM EST02/11/2025 1:54 AM EST Narrative Authorizing ProviderResult TypeResult StatusAmy Sarah MEDINA BLOOD ORDERABLES Final ResultPerforming OrganizationAddressCity/State/ZIP CodePhone Number [facility] [place] [place] [address] [address] from Last 3 Months Insurance Care Teams Team MemberRelationshipSpecialtyStart DateEnd Date Yonis Ball MD [address] [place] [phone] PCP - GeneralFamily Medicine05/28/23 Yonis Ball MD [address] [place] [phone] PCP - [facility]04/08/24
--- OUTSIDE RECORDS SUMMARY | 2025-03-29 20:41 | XMS_ITS | Clinical Summary ---
Author Organization [employer] [facility] [employer] Address [facility] [id number] [address] [place] [address] Care Team Providers Care Freight Claim Investigator Name Role Phone Yonis Ball MD Primary Care Provider [phone] Allergies No known active allergies Medications MedicationSigDispense QuantityRefillsLast FilledStart DateEnd DateStatus ALPRAZolam (XANAX) 1 mg tablet Take 1 mg by mouth in the morning and 1 mg at noon and 1 mg before bedtime. 06/05/2021ctive buPROPion XL (WELLBUTRIN XL) 300 mg 24 hr tablet Take 300 mg by mouth in the morning.07/11/2021ctive buPROPion XL (WELLBUTRIN XL) 150 mg 24 hr tablet Take 150 mg by mouth in the morning.05/31/2021ctive cholecalciferol, vitamin D3, 2,000 units tablet Take by mouth daily.05/29/2021ctive levonorgestreL (MIRENA) 20 mcg/24 hours (7 yrs) 52 mg IUD by intrauterine route.Active phentermine (ADIPEX-P) 37.5 mg tablet Take 37.5 mg by mouth in the morning.06/05/2021ctive ibuprofen (ADVIL,MOTRIN) 800 mg tablet Take 800 mg by mouth every 6 (six) hours as needed for pain.Active Family History Medical HistoryRelationNameCommentsAtrial fibrillationFatherNo Known Problems MotherRelationNameStatusCommentsFatherAliveMotherAlive Social History Tobacco UseTypesPacks/DayYears UsedDateSmoking Tobacco: Every DayCigarettes0.515 Smokeless Tobacco: NeverAlcohol UseStandard Drinks/WeekCommentsNot Currently0 (1 standard drink = 0.6 oz pure alcohol)ChildcareAnswerDate RecordedChildcare Qpofykx80/12/2019EmploymentAnswerDate UmpmqejcJkzduvklbuWwjedmv35/12/2019 CommentsUnknownSex and Gender InformationValueDate RecordedSex Assigned at BirthNot on fileLegal KfwIukevt23/06/2015 12:00 PM EDTGender IdentityNot on fileSexual OrientationNot on file Last Filed Vital Signs Vital SignReadingTime TakenCommentsBlood Asbnsyjr782/8004 9:27 AM EDT Pulse--Jrjroifjjeu19.6 ??C (97.8 ??F)07/18/2021 9:27 AM EDTRespiratory Rate-- Oxygen Saturation--Inhaled Oxygen Concentration--Ffhnfh501.8 kg (262 lb) 07/18/2021 9:27 AM QZPOtobtw948.3 cm (5' 9 )07/18/2021 9:27 AM EDTBody Mass Index38.69007/18/2021 9:27 AM EDT Plan of Treatment Health MaintenanceDue DateLast DoneCommentsDepression Tyodurttz87/31/1999Tobacco Ejybopnfs08/31/1999Adult BMI Jjvqyctws99/31/2005DTaP,Tdap and Td Vaccines (1 - Tdap)2005Pap Smear07/07/2007Influenza Efrhmdp1612/07/2024 Medical Devices Not on file Insurance Care Teams Team MemberRelationshipSpecialtyStart DateEnd Date Yonis Ball MD [facility]18/[facility]
--- OUTSIDE RECORDS SUMMARY | 2025-03-29 20:41 | XMS_ITS | Patient Health Record ---
Author Organization [facility] in [place] Address [address] [place] [address] Care Team Providers Care Speedboat Operator Name Role Phone Itz Oneill Primary Care Provider [phone] Allergies No Known Allergies Results Component Value Reference Range Notes CBC AUTO DIFF Reviewed date:12/09/2024 12:58:53 PM Interpretation: Performing Lab: Notes/Report: [facility] , White Blood Count 8.6 4.0-11.0 10 3/uL Red Blood Count4.504.20-5.40 10 6/aTMffbduncav56.212.0-16.0 g/mHPfapmvxzkb46.3 36.0-48.0 %Mean Corpuscular Qocemw88.281.0-99.0 fLMean Corpuscular Hemoglobin 31.626.7-34.0 pgMean Corpuscular HGB Conc32.829.9-35.2 g/dLRed Cell Distribution Width13.511.0-15.0 %Platelet Hqvwr253548-707 10 3/uLMean Platelet Naehxj45.49.5- 13.5 fLNeutrophils Percent Auto55.543.0-75.0 %Lymphocytes Percent Auto34.920.5- 60.0 %Monocytes Percent Auto6.51.7-12.0 %Eosinophils Percent Auto2.40.9-7.0 % Basophils Percent Auto0.50.2-2.0 %Immature Granulocytes Pct Auto0.20.0-0.5 % Neutrophils Absolute Auto4.81.4-6.5 10 3/uLLymphocytes Absolute Auto3.01.2-3.8 10 3/uLMonocytes Absolute Auto0.60.3-0.8 10 3/uLEosinophils Absolute Auto0.20.0- 0.7 10 3/uLBasophils Absolute Auto0.00.0-0.1 10 3/uLImmature Granulocytes Abs Auto0.020.00-0.03 10 3/uLPerforming Lab:see noteML - [facility] LB FOLATE Reviewed date:12/09/2024 06:09:31 PM Interpretation: Performing Lab: Notes/Report: [facility] ,Folate5.108.60-58.90 ng/mLPerforming Lab:see noteML - [facility] FREE T3 Reviewed date:12/09/2024 12:58:53 PM Interpretation: Performing Lab: Notes/Report: [facility] ,Free T32.732.18-3.98 pg/mLPerforming Lab:see noteML - [facility] LB GLYCOHEMOGLOBIN A1C Reviewed date:12/09/2024 12:58:53 PM Interpretation: Performing Lab: Notes/Report: [facility] ,Glycohemoglobin A1C5.24.5-6.2 % ADA RECOMMENDED LIMIT 4.0 - 6.0 ADA THERAPEUTIC TARGET < 7.0 ACTION SUGGESTED > 7.0 Estimated Average Fvziewy081Zjrsajarva Lab:see noteML - [facility] LB IRON Reviewed date:12/09/2024 12:58:53 PM Interpretation: Performing Lab: Notes/Report: [facility] ,Iron75.050.0-170.0 ug/dLPerforming Lab:see noteML - [facility] LB LIPID PROFILE Reviewed date:12/09/2024 12:58:53 PM Interpretation: Performing Lab: Notes/Report: [facility] ,Gbqeevbwikjvj61<=150 mg/eKLcifbepvyvy777<=200 mg/dLHDL Zugpgidhxzh7680-66 mg/dL > or =60 mg/dl - LOW CARDIOVASCULAR RISK <40 mg/dl - HIGH CARDIOVASCULAR RISK LDL Cholesterol Pnhjbwbgzq148.8 <100 mg/dl OPTIMAL 100-129 mg/dl NEAR OR ABOVE OPTIMAL 130-159 mg/dl BORDERLINE HIGH 160-189 mg/dl HIGH >190 mg/dl VERY HIGH VLDL DMLADEWVGDD72.2Chol HDL Ratio3.3 3.3 - 4.4 LOW RISK 4.4 - 7.1 AVERAGE RISK 7.1 - 11.0 MODERATE RISK >11.0 HIGH RISK Performing Lab:see noteML - [facility] LBPROF 14(COMP METB) Reviewed date:12/09/2024 12:58:53 PM Interpretation: Performing Lab: Notes/Report: [facility] ,Iieofp831103-229 mmol/LPotassium3.83.5-5.1 mmol/ZKmhffjye69858-179 mmol/LCarbon Rrycdel86.021.0-32.0 mmol/LAnion Gap11.9Gawfzov0488-820 mg/dLBlood Urea Nitrogen 13.07.0-18.0 mg/dLCreatinine0.790.55-1.02 mg/dLEstimated GFR ( Rosalva>60 >=60 mL/min/1.73m 2Estimated GFR (Non- Abril>60>=60 mL/min/1.73m 2BUN Creatinine Ratio16.3Aerukgk4.58.5-10.1 mg/dLBilirubin Total0.90.2-1.0 mg/dL Aspartate Amino Dmbatyumaco8505-38 U/LAlanine Knycjdpmveshrxmy2369-71 U/L Alkaline Rsuykyokpyz3938-972 U/LTotal Protein7.86.4-8.2 g/dLAlbumin Level3.83.4- 5.0 g/dLGlobulin4.0Albumin Globulin Ratio0.9Performing Lab:see noteML - [facility] LBT4 Reviewed date:12/09/2024 12:58:53 PM Interpretation: Performing Lab: Notes/Report: [facility] ,T4 Thyroxine7.104.80-13.90 ug/dLPerforming Lab:see noteML - [facility] LBTSH Reviewed date:12/09/2024 12:58:53 PM Interpretation: Performing Lab: Notes/Report: [facility] ,Thyroid Stimulating Hormone2.8590.358-3.740 uIU/mLPerforming Lab:see note - [facility] LBVITAMIN D 25 [place] Reviewed date:12/09/2024 06:09:31 PM Interpretation: Performing Lab: Notes/Report: [facility] ,Vitamin D49.1 <20 ng/mL Vit D deficient 20-<30 ng/mL Vit D insufficient 30-100 ng/mL Vit D sufficient >100 ng/mL Potential Toxicity Performing Lab:see narda - [facility] LBProgesterone Reviewed date:12/12/2024 04:13:46 PM Interpretation: Performing Lab: Notes/Report: [facility] ,Progesterone0.5. ng/mL Follicular phase 0.1 - 0.9 Luteal phase 1.8 - 23.9 Ovulation phase 0.1 - 12.0 First trimester 11.0 - 44.3 Second trimester 25.4 - 83.3 Third trimester 58.7 - 214.0 Postmenopausal 0.0 - 0.1 Performed at: [address] [id number] Software Qa Manager: Bhargav López PhD, Phone: [phone] Performing Lab:see [facility] LBLuteinizing Hormone(LH) Reviewed date:12/12/2024 04:13:46 PM Interpretation: Performing Lab: Notes/Report: [facility] ,Luteinizing Hormone(LH)9.9. mIU/mL Adult Female Range Follicular phase 2.4 - 12.6 Ovulation phase 14.0 - 95.6 Luteal phase 1.0 - 11.4 Postmenopausal 7.7 - 58.5 Performing Lab:[facility] LBFSH Reviewed date:12/12/2024 04:13:46 PM Interpretation: Performing Lab: Notes/Report: [facility] ,FSH5.5. mIU/mL Adult Female Range Follicular phase 3.5 - 12.5 Ovulation phase 4.7 - 21.5 Luteal phase 1.7 - 7.7 Postmenopausal 25.8 - 134.8 Performing Lab:see [facility] LBEstradiol Reviewed date:12/12/2024 04:13:46 PM Interpretation: Performing Lab: Notes/Report: [facility] ,Rhlfvsfym466.0. pg/mL Adult Female Range Follicular phase 12.5 - 166.0 Ovulation phase 85.8 - 498.0 Luteal phase 43.8 - 211.0 Postmenopausal <6.0 - 54.7 1st trimester 215.0 - >4300.0 Cece ECLIA methodology Performed at: [address] [id number] Software Qa Manager: Bhargav López PhD, Phone: [phone] Performing Lab:see [facility] LBVitamin B12 Reviewed date:12/10/2024 03:55:08 PM Interpretation: Performing Lab: Notes/Report: [place] ,Vitamin D92731621-8864 pg/mL Performed at: [address] [id number] Software Qa Manager: Bhargav López PhD, Phone: [phone] Performing Lab:see [facility] LB Reason For Referral No Information Medications Medication SIG (Take, Route, Frequency, Duration) Notes Start Date End Date Status ALPRAZolam 0.5 MG 1 tablet Orally bid; Duration: 7 days F41.9 5ActiveLaMICtal 25 MG1 tablet Orally; Duration: 30 day(s)12/03/2024 CsvdwlTsznkdemhjed33/04/2025ActiveWellbutrin XL 150 MG1 tablet in the morning Orally Once a day; Duration: 30 day(s)5Active Social History Tobacco Use: Social History Observation Description Date Details (start date - stop date) Former Smoker 11/06/1996 - 10/07/2023 Tobacco Control (Standard) Question Answer Notes Tobacco use: Former smoker When did you start smoking?11/06/1996When did you stop smoking?10/07/2023How long has it been since you last smoked?1-5 yearsAUDIT-C (Standard) Question Answer Notes Did you have a drink containing alcohol in the p ast year? No Hkwnxd5RksteflpyxgfgdQubqfkpx Problems Problem Type SNOMED Code ICD Code Onset Dates Problem Status W/U Status Risk Notes Problem Anxiety (80361827) Anxiety (F41.9) ActiveconfirmedProblemDepression (517645299)Depression (F32.9)Activeconfirmed Vital Signs Blood pressure diastolic 74 mm Hg 12/03/2024 Yqintm30 in12/03/2024lood pressure xanyqwsh048 mm Hg12/03/20248686Znwzwd178.8 lbs 12/03/2024BMI27.03 kg/m212/03/2024 Encounters Encounter Location Date Provider Diagnosis [facility] [address] [place] [facility] [place] [address] 12/03/2024 Itz Oneill Well adult Z00.00 an d Anxiety F41.9 [facility] [address] [place] [address] 12/09/2024 Itz Oneill [facility] [place] [facility] [place] [place] [address] 12/09/2024[facility] [place] [place] [place] [address]/09/2024[facility] [place] [place] [place] [address]/03/2025Do HoyAnxiety F41.9 Assessments Encounter Date Diagnosis (ICD Code) Assessment Notes Treatment Notes Treatment Clinical Notes Section Notes 12/03/2024 Well adult (ICD-10 - Z00.00) 12/03/2024nxiety (ICD-10 - F41.9)12/18/2024nxiety (ICD-10 - F41.9) Plan Of Treatment Pending [...] Date Coverage End Date [employer] [place] [employer]ICA[employer] [address] [place] [address] [id number] Agapito Donaldelf - patient is the insured Medical (General) History Medical History History ICD Code Anxiety F41.9 Depression F32.9 Surgical History Surgery Date(Month/Year) Bariatric Surgery- Dr Figueroa 01/2024 Hospitalization History Reason Date(Month/Year) Bariatric surgery 01/2024
--- OUTSIDE RECORDS SUMMARY | 2025-03-29 20:41 | XMS_ITS | Patient Health Record ---
Author Organization [facility] Address [address] [place] [address] Care Team Providers Care Client Advocate Name Role Phone Dr. Jens Stephenson Primary Care Provider Philly Mercer Les [phone] Reason For Referral No Information Medications Medication SIG (Take, Route, Frequency, Duration) Notes Start Date End Date Status Ibuprofen 800 MG Tablet 1 tablet with fo od or milk as needed Orally every 8 hrs; Duration: 10 days 5ActiveIbuprofen 800 MG Tablet1 tablet with food or milk as needed Orally Three times a day5Active Encounters Encounter Location Date Provider Diagnosis [facility] [address] [place] [address] 09/08/2024 [facility] [place] [address]/11/[facility] [place] [address] [place] [address] [facility] [place] [address] 12/28/2024[facility] [place] [address]/10/2025[facility] [place] [address]/02/2025[facility] [address] [place] [address]/Katrina HarrisAcute gingivitis, plaque induced K05.00 ; Other dental procedure status Z98.818 ; Encounter for dental examination and cleaning with abnormal findings Z01.21 ; Cracked tooth K03.81 ; Partial loss of teeth, unspecified cause, class I K08.401 and Dental caries on pit and fissure surface penetrating into dentin K02.52S Jtwownj934 [facility] [place] [address]/Joseph RizkDental caries on pit and fissure surface penetrating into dentin K02.52S Gzsyscl708 [facility] [place] [address]/06/2024Joseph RizkCracked tooth K03.81[facility] [address] [place] [address]/Joseph RizkCracked tooth K03.81 ; Necrosis of pulp K04.1 and Dental caries on pit and fissure surface penetrati ng into dentin K02.52[facility] [place] [address]/Joseph RizkDental caries on pit and fissure surface penetrating into dentin K02.52[facility] [place] [address]/Joseph RizkDental caries on pit and fissure surface penetrating into dentin K02.52 Assessments Encounter Date Diagnosis (ICD Code) Assessment Notes Treatment Notes Treatment Clinical Notes Section Notes 07/31/2024 Cracked tooth (ICD-10 - K03.81) 08/04/2024Dental caries on pit and fissure surface penetrating into dentin (ICD- 10 - K02.52)08/18/2024Dental caries on pit and fissure surface penetrating into dentin (ICD-10 - K02.52)09/03/2025Cracked tooth (ICD-10 - K03.81)12/28/2024 Dental caries on pit and fissure surface penetrating into dentin (ICD-10 - K02.52)03/02/2025ute gingivitis, plaque induced (ICD-10 - K05.00)07/31/2024 Necrosis of pulp (ICD-10 - K04.1)03/02/2025Other dental procedure status (ICD-10 - Z98.818)07/31/2024Dental caries on pit and fissure surface penetrating into dentin (ICD-10 - K02.52)03/02/2025Encounter for dental examination and cleaning with abnormal findings (ICD-10 - Z01.21)03/02/2025racked tooth (ICD-10 - K03.81)03/02/2025Partial loss of teeth, unspecified cause, class I (ICD-10 - K08.401)03/02/2025Dental caries on pit and fissure surface penetrating into dentin (ICD-10 - K02.52) Plan Of Treatment Next Appt Details Provider Name:Jens Stephenson, 0 04/22/2025 09:55:00 AM, [address] [place], [address], Provider Name:Enedina Duncan, 05/24/2025 09:30:00 AM, [address], [place], [address], Provider Name:Jens Stephenson, 0 07/15/2025 08:30:00 AM, [address] [place], [address], Provider Name:Jens Stephenson, 0 07/19/2025 09:30:00 AM, [address] [place], [address], Provider Name:Philly Mercer , 09/22/2025 09:15:00 AM, [address], [place], [address], Insurance Providers Payer Name Payer Address Payer Phone Subscriber Number Group Number Insured Name Patient Relationship to Insured Coverage Start Date Coverage End Date Dental [employer] [place] Medicaid [address] [place] [address] [id number] WESLYRIGO AMARO Self - patient is the insured Dental Wrap [facility] [address] [place] [id number], NATALIESelf - patient is the [id number] 2024zDental UHC [place] MedicaidPO [address] [place] [id number] RILEYMAINEelf - patient is the ymemiby97ental Wrap [facility] [address] [place] [id number] - patient is the [id number]
--- OUTSIDE RECORDS SUMMARY | 2025-03-29 20:41 | XMS_ITS | Clinical Summary ---
Author Organization [facility] Address [address], [address] [place] [address] Care Team Providers Care Family Law Paralegal Name Role Phone None, . 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, chvyokonmq87/15/2012 Social History Tobacco UseTypesPacks/DayYears UsedDateSmoking Tobacco: Every DayCigarettes0.215 Tobacco Cessation:Ready to Q uit: No; Counseling Given: Yes Alcohol UseStandard Drinks/WeekCommentsNot Asked0 (1 standard drink = 0.6 oz pure alcohol)CommentsUnknownSex and Gender InformationValueDate Recorded Sex Assigned at BirthNot on fileLegal JtyTsjlkb35/12/2013 11:01 PM ESTGender IdentityNot on fileSexual OrientationNot on file Last Filed Vital Signs Vital SignReadingTime TakenCommentsBlood Jeylddzt060/6408 11:00 AM EDT Fkmlp0034 11:00 AM KFDJjzhwozyemm89.9 ??C (98.4 ??F)11/20/2011 11:00 AM EDTRespiratory Rhhj4760 11:00 AM EDTOxygen Saturation--Inhaled Oxygen Concentration--Xpxzhb439.3 kg (263 lb)11/20/2011 11:00 AM EDTHeight--Body Mass Index-- Plan of Treatment Not on file Care Teams Team MemberRelationshipSpecialtyStart DateEnd Date None, . PCP - General08/14/11
--- OUTSIDE RECORDS SUMMARY | 2025-03-29 20:41 | XMS_ITS | Encounter Summary ---
Author Organization [facility] Address [address] [facility] [place] [address] Care Team Providers Care Strip Polisher Name Role Phone Yonis Ball MD Primary Care Provider [phone] Yonis Ball MD Unavailable Encounter Details DateTypeDepartmentCare Team (Latest Contact Info)Szteurcchym38/22/2025Bamboo flowsheet [facility] [address] [place] [phone] Daphne Smith PA [address] [place], [place] [id number] Social History Tobacco UseTypesPacks/DayYears UsedDateSmoking Tobacco: Every VmxHaewqjsjjo547 Started: 2004Passive Smoke Exposure: PastAlcohol UseStandard Drinks/WeekComments Defer0 (1 standard drink = 0.6 oz pure alcohol)CommentsUnknownSex and Gender InformationValueDate RecordedSex Assigned at BirthNot on fileLegal Sex Qaxhfm4606/20/2022 7:20 PM EDTGender IdentityNot on fileSexual OrientationNot on filedocumented as of this encounter Plan of Treatment Not on file documented as of this encounter Visit Diagnoses Not on filedocumented in this encounter Care Teams Team MemberRelationshipSpecialtyStart DateEnd Date Yonis Ball MD [address] [place] [address] PCP - GeneralFamily Medicine05/28/23 Yonis Ball MD [address] [place] [address] PCP - [facility]/05/02documented as of this encounter
== END 2025-03-29 20:39 | disposition home or self-care (01) ==
LOC: LAB 20:38
PROVIDERS: PCP Family Medicine; Visit Provider Physician Assistant
DX: Z01.419 Encounter for gynecological examination (general) (routine) without abnormal findings (principal)
CPT/HCPCS: 88175